=== PATIENT | female | born 1960 | race Asian ===

== ENCOUNTER → 2016-10-08 | Outpatient (CLI) | payer BC ==
[~2016-10-08] MED LIST: ALBUTEROL0.83 MG/ML IH; ASPIR-LOW81 MG PO; ASPIRIN E.C. 8181 MG PO; ATARAX 25MG25 MG/TAB PO; BENICAR; BRILINTA90 MG PO; CANA300T PO; CIPRO500 MG PO; CLARINEX 5MG5 MG PO; COMBIRESP IH; COUMADIN 5MG5 MG/TAB PO; CRESTOR20 MG PO; CYCLOBENZAPRINE5 MG PO; DIFLUCAN50 MG PO; DOXYCYCLINE 10100 MG PO; DULCOLAX TAB5 MG PO; EDARBI40 MG PO; ELAVIL50 MG PO; FLEXERIL5 MG PO; FLUCONAZOLE200 MG PO; GABAPENTIN; HUMALOG100 U/ML SC; LEVEMIR100 U/ML SC; LOPRESSOR 225 MG/TAB PO; LYRICA 75MG CAP75 MG PO; MAXALT10 MG PO; MULTIPLE VITAMI1 CAP PO; NITROSTAT0.4 MG/TAB SL; NORCO 325 MG-51 TAB PO; NOVOLOG100 U/ML IV; PERCOCET 325 MG1 TA2 PO; PLETAL 100MG T100 MG PO; RESTORIL 1515 MG/CAP PO; TOPROL; TOPROL XL 25MG25 MG PO; ULTRAM 50MG TAB50 MG PO; VYTORIN
== END ==
LOC: MHCPAIN 08:46
DX: G89.29 Other chronic pain (principal); M47.817 Spondylosis without myelopathy or radiculopathy, lumbosacral region; M54.16 Radiculopathy, lumbar region; E11.9 Type 2 diabetes mellitus without complications; F17.210 Nicotine dependence, cigarettes, uncomplicated
CPT/HCPCS: G0463

== ENCOUNTER → 2016-11-22 | Outpatient (CLI) | payer BC | LOC: MHCPAIN 10:48 | DX: G89.29 Other chronic pain (principal); M47.817 Spondylosis without myelopathy or radiculopathy, lumbosacral region; M54.16 Radiculopathy, lumbar region | CPT/HCPCS: G0463 ==

== ENCOUNTER → 2016-11-28 | Outpatient (CLI) | payer BC | LOC: MHCPAIN 07:39 | DX: Z53.8 Procedure and treatment not carried out for other reasons (principal) ==

== ENCOUNTER → 2016-12-12 | Outpatient (CLI) | payer BC, OTHER | LOC: MHCPAIN 09:30 | DX: M47.27 Other spondylosis with radiculopathy, lumbosacral region (principal) | CPT/HCPCS: J1100; Q9967 ==

== ENCOUNTER → 2017-01-13 | Outpatient (CLI) | payer BC | LOC: MHCPAIN 07:35 | DX: G89.29 Other chronic pain (principal); M47.817 Spondylosis without myelopathy or radiculopathy, lumbosacral region; M54.16 Radiculopathy, lumbar region; M53.3 Sacrococcygeal disorders, not elsewhere classified; F17.210 Nicotine dependence, cigarettes, uncomplicated | CPT/HCPCS: G0463 ==

== ENCOUNTER → 2017-01-30 | Outpatient (CLI) | payer BC | LOC: MHCPAIN 07:49 | DX: M47.817 Spondylosis without myelopathy or radiculopathy, lumbosacral region (principal) ==

== ENCOUNTER → 2017-02-05 | Outpatient (CLI) | payer BC | LOC: MHCPAIN 11:36 | DX: G89.29 Other chronic pain (principal); M47.817 Spondylosis without myelopathy or radiculopathy, lumbosacral region; M54.16 Radiculopathy, lumbar region; M53.3 Sacrococcygeal disorders, not elsewhere classified | CPT/HCPCS: G0463 ==

== ENCOUNTER → 2017-02-13 | Outpatient (CLI) | payer BC | LOC: MHCPAIN 08:25 | DX: M47.817 Spondylosis without myelopathy or radiculopathy, lumbosacral region (principal) ==

== ENCOUNTER → 2017-02-24 | Outpatient (CLI) | payer BC | LOC: MHCPAIN 10:59 | DX: G89.29 Other chronic pain (principal); M47.817 Spondylosis without myelopathy or radiculopathy, lumbosacral region; M54.16 Radiculopathy, lumbar region; F17.210 Nicotine dependence, cigarettes, uncomplicated | CPT/HCPCS: G0463 ==

== ENCOUNTER → 2017-03-06 | Outpatient (CLI) | payer BC | LOC: MHCPAIN 08:33 | DX: M47.817 Spondylosis without myelopathy or radiculopathy, lumbosacral region (principal) | CPT/HCPCS: J2250; J3010 ==

== ENCOUNTER → 2017-03-13 | Outpatient (CLI) | payer BC | LOC: MHCPAIN 08:26 | DX: M47.817 Spondylosis without myelopathy or radiculopathy, lumbosacral region (principal) | CPT/HCPCS: J2250; J3010 ==

== ENCOUNTER 2017-03-20 20:42 | Emergency (ER) | payer BC ==
[~2017-03-20] VITALS: Ht 167.6 cm; Wt 70.5 kg
[2017-03-20 20:46] VITALS: BP 152/79; TEMP 99
[2017-03-20] MEDS ORDERED: PERCOCET 325 MG1 TA2 PO (20:49)
[2017-03-20 23:23] VITALS: PULSE 92
== END 2017-03-20 23:23 | disposition home or self-care (01) ==
LOC: COL.ER 20:42
DX: G89.29 Other chronic pain (principal); M54.5 Low back pain; E11.9 Type 2 diabetes mellitus without complications; I10 Essential (primary) hypertension; I25.10 Atherosclerotic heart disease of native coronary artery without angina pectoris; Z95.820 Peripheral vascular angioplasty status with implants and grafts; F17.210 Nicotine dependence, cigarettes, uncomplicated
CPT/HCPCS: J1885; J3360

== ENCOUNTER → 2017-04-14 | Outpatient (CLI) | payer BC | LOC: MHCPAIN 12:06 | DX: G89.29 Other chronic pain (principal); F17.210 Nicotine dependence, cigarettes, uncomplicated; Z79.82 Long term (current) use of aspirin | CPT/HCPCS: G0463 ==

== ENCOUNTER → 2017-06-17 | Outpatient (CLI) | payer BC | LOC: MHCPAIN 08:08 | DX: G89.29 Other chronic pain (principal); M47.27 Other spondylosis with radiculopathy, lumbosacral region; M53.3 Sacrococcygeal disorders, not elsewhere classified; F17.210 Nicotine dependence, cigarettes, uncomplicated; Z79.82 Long term (current) use of aspirin | CPT/HCPCS: G0463 ==

== ENCOUNTER → 2017-07-29 | Outpatient (CLI) | payer BC ==
[2017-07-29 14:15] LABS: BASO # 0.1 (0.0-0.2); BASO % 1.2 % (0.0-2.0); EOS # 0.1 (0.0-0.7); EOS % 1.3 % (0-4.0); GRAN # 5.8 (1.4-6.5); GRAN % 60.2 % (42.2-75.2); HEMATOCRIT 44.8 % (37.0-47.0); HEMOGLOBIN 15.4 g/dl (12.5-16.0); LYMPH # 3.1 (1.2-3.4); LYMPH % 31.9 % (20.0-51.0); MEAN CELL VOLUME 87 fl (80.0-100.0); MEAN CORPUSCULAR HEMOGLOBIN 30 pg (27.0-31.0); MEAN CORPUSCULAR HGB CONC 34 g/dl (33.0-37.0); MEAN PLATELET VOLUME 9.9 fl (7.4-10.4); MONO # 0.5 (0.1-0.6); PLATELET COUNT 325 K/mm3 (130-400); RED BLOOD COUNT 5.18 M/mm3 (4.10-5.30); WHITE BLOOD COUNT 9.7 K/mm3 (4.8-10.8)
[2017-07-29 14:26] LABS: CALCIUM 10.5 mg/dL (8.4-10.2); CREATININE, serum 0.7 mg/dL (0.52-1.25); POTASSIUM 3.9 mmol/L (3.4-5.0)
[2017-07-30] LABS: ALBUMIN/CREATININE RATIO URINE 129.4 mg/g (0.0-29.0); URINE MICROALBUMIN 4.4 mg/dL (0.0-1.7)
== END ==
LOC: COL.LAB 13:37
PROVIDERS: Registered Nurse
DX: E11.8 Type 2 diabetes mellitus with unspecified complications (principal)

== ENCOUNTER → 2018-06-27 | Outpatient (CLI) | payer OTHER ==
[2018-06-27 06:52] LABS: HEMATOCRIT 42.2 % (37.0-47.0); HEMOGLOBIN 14.2 g/dl (12.5-16.0); MEAN CELL VOLUME 88 fl (80.0-100.0); MEAN CORPUSCULAR HEMOGLOBIN 30 pg (27.0-31.0); MEAN CORPUSCULAR HGB CONC 34 g/dl (33.0-37.0); PLATELET COUNT 354 K/mm3 (130-400); REDCELL DISTRIBUTION WIDTH-CV 12.8 % (11.5-14.5)
[2018-06-27 07:08] LABS: CREATININE, serum 0.82 mg/dL (0.52-1.25); POTASSIUM 3.9 mmol/L (3.4-5.0)
== END ==
LOC: COL.LAB 06:30
PROVIDERS: Internal Medicine Interventional Cardiology
DX: M79.604 Pain in right leg (principal); M79.605 Pain in left leg

== ENCOUNTER 2018-08-19 10:23 | Outpatient (RCR) | payer OTHER ==
[2018-08-26] MEDS ORDERED: LANTUS100 U/ML SQ (01:11)
[2018-08-26] MEDS ORDERED: TOPROL XL100 MG PO (01:15)
[2018-08-26] MEDS ORDERED: GLUCOPHAGE500 MG/TAB PO (01:18)
[2018-08-26] MEDS ORDERED: WELLBUTRIN XL150 MG PO (01:19)
[2018-08-26] MEDS ORDERED: PAMELOR 25MG25 MG PO (01:20)
[2018-08-26] MEDS ORDERED: NORVASC 10MG10 MG (01:20)
[2018-08-26] MEDS ORDERED: IMDUR 60MG60 MG/TAB PO (01:22)
[2018-08-26] MEDS ORDERED: LIPITOR 80MG80 MG PO (01:23)
[2018-08-26] MEDS ORDERED: PRIL40 PO (01:24)
== END 2018-11-12 | disposition still patient (30) ==
LOC: WSOH
DX: S46.812A Strain of other muscles, fascia and tendons at shoulder and upper arm level, left arm, initial encounter (principal); S50.02XA Contusion of left elbow, initial encounter; S60.413A Abrasion of left middle finger, initial encounter; W10.1XXA Fall (on)(from) sidewalk curb, initial encounter; Y93.01 Activity, walking, marching and hiking; Y92.128 Other place in nursing home as the place of occurrence of the external cause; Y99.0 Civilian activity done for income or pay; F17.210 Nicotine dependence, cigarettes, uncomplicated; Z79.82 Long term (current) use of aspirin; Z79.4 Long term (current) use of insulin; Z79.899 Other long term (current) drug therapy

== ENCOUNTER 2018-08-25 21:34 | Observation (INO) | payer OTHER ==
[~2018-08-25] VITALS: Ht 167.6 cm; Wt 67.4 kg
[2018-08-25 22:25] LABS: BASO # 0.1 (0.0-0.2); BASO % 1.2 % (0.0-2.0); EOS # 0.3 (0.0-0.7); EOS % 2.8 % (0-4.0); GRAN # 5.5 (1.4-6.5); GRAN % 54.4 % (42.2-75.2); HEMATOCRIT 43.2 % (37.0-47.0); HEMOGLOBIN 14.8 g/dl (12.5-16.0); LYMPH # 3.6 (1.2-3.4); LYMPH % 35.8 % (20.0-51.0); MEAN CELL VOLUME 86 fl (80.0-100.0); MEAN CORPUSCULAR HEMOGLOBIN 29 pg (27.0-31.0); MEAN CORPUSCULAR HGB CONC 34 g/dl (33.0-37.0); MONO # 0.6 (0.1-0.6); MONO % 5.4 % (1.7-9.3); PLATELET COUNT 337 K/mm3 (130-400); RED BLOOD COUNT 5.04 M/mm3 (4.10-5.30); REDCELL DISTRIBUTION WIDTH-CV 12.5 % (11.5-14.5)
[2018-08-25 22:36] LABS: ALBUMIN 4.1 gm/dL (3.5-5.0); BILIRUBIN,TOTAL 0.3 mg/dL (0.0-1.0); CALCIUM 9.7 mg/dL (8.4-10.2); CREATININE, serum 0.84 mg/dL (0.52-1.25); POTASSIUM 3.5 mmol/L (3.4-5.0); TOTAL PROTEIN 7.3 gm/dL (6.4-8.2)
[2018-08-25 22:47] LABS: TROPONIN-I 0.02 ng/mL (0.000-0.034)
[2018-08-26 00:52] VITALS: BP 118/96; PULSE 79; TEMP 98.3
[2018-08-26] MEDS ORDERED: LANTUS100 U/ML SQ (01:11)
[2018-08-26] MEDS ORDERED: TOPROL XL100 MG PO (01:15)
[2018-08-26] MEDS ORDERED: GLUCOPHAGE500 MG/TAB PO (01:18)
[2018-08-26] MEDS ORDERED: WELLBUTRIN XL150 MG PO (01:19)
[2018-08-26] MEDS ORDERED: PAMELOR 25MG25 MG PO (01:20)
[2018-08-26] MEDS ORDERED: NORVASC 10MG10 MG (01:20)
[2018-08-26] MEDS ORDERED: IMDUR 60MG60 MG/TAB PO (01:22)
[2018-08-26] MEDS ORDERED: LIPITOR 80MG80 MG PO (01:23)
[2018-08-26] MEDS ORDERED: PRIL40 PO (01:24)
[2018-08-26 04:11] VITALS: BP 114/55; PULSE 76; TEMP 97.6
[2018-08-26 09:45] VITALS: BP 107/51; PULSE 64; TEMP 98.4
[2018-08-26 13:00] VITALS: BP 109/53; PULSE 79; TEMP 98.7
[2018-08-26 16:02] VITALS: BP 122/61; PULSE 80; TEMP 98.4
== END 2018-08-26 19:00 | disposition home or self-care (01) ==
LOC: COL.ER 21:34 → MEDICAL 23:37
PROVIDERS: Emergency Medicine
DX: R07.89 Other chest pain (principal); I70.213 Atherosclerosis of native arteries of extremities with intermittent claudication, bilateral legs; I77.1 Stricture of artery; M79.604 Pain in right leg; M79.605 Pain in left leg; I10 Essential (primary) hypertension; F17.210 Nicotine dependence, cigarettes, uncomplicated; E11.9 Type 2 diabetes mellitus without complications; Z79.4 Long term (current) use of insulin; Z79.899 Other long term (current) drug therapy; Z79.82 Long term (current) use of aspirin; Z95.820 Peripheral vascular angioplasty status with implants and grafts; E78.6 Lipoprotein deficiency; I73.89 Other specified peripheral vascular diseases
CPT/HCPCS: A9585; G0378

== ENCOUNTER 2018-09-07 20:43 | Emergency (ER) | payer OTHER ==
[~2018-09-07] VITALS: Ht 167.6 cm; Wt 65.9 kg
[~2018-09-07 20:43] MED LIST changes: +GLUCOPHAGE500 MG/TAB PO; +IMDUR 60MG60 MG/TAB PO; +LANTUS100 U/ML SQ; +LIPITOR 80MG80 MG PO; +NORVASC 10MG10 MG; +PAMELOR 25MG25 MG PO; +PRIL40 PO; +TOPROL XL100 MG PO; +WELLBUTRIN XL150 MG PO
[2018-09-07 20:53] VITALS: TEMP 97.9
[2018-09-07 22:25] LABS: BASO # 0.1 (0.0-0.2); BASO % 0.8 % (0.0-2.0); EOS # 0.2 (0.0-0.7); GRAN # 4.9 (1.4-6.5); GRAN % 56.9 % (42.2-75.2); HEMATOCRIT 37.2 % (37.0-47.0); HEMOGLOBIN 12.5 g/dl (12.5-16.0); LYMPH # 3.1 (1.2-3.4); LYMPH % 35.4 % (20.0-51.0); MEAN CELL VOLUME 87 fl (80.0-100.0); MEAN CORPUSCULAR HEMOGLOBIN 29 pg (27.0-31.0); MEAN CORPUSCULAR HGB CONC 34 g/dl (33.0-37.0); MEAN PLATELET VOLUME 9.7 fl (7.4-10.4); MONO # 0.4 (0.1-0.6); MONO % 4.3 % (1.7-9.3); PLATELET COUNT 331 K/mm3 (130-400); REDCELL DISTRIBUTION WIDTH-CV 12.3 % (11.5-14.5)
[2018-09-07 22:31] LABS: INR 0.9 (0.8-3.0); PROTHROMBIN TIME 10.5 SECONDS (9.7-12.8)
[2018-09-08 01:50] VITALS: BP 130/84; PULSE 80
== END 2018-09-08 02:00 | disposition short-term general hospital (02) ==
LOC: COL.ER 20:43 → MEDICAL 22:06 → COL.ER 22:06
PROVIDERS: Emergency Medicine
DX: I97.610 Postprocedural hemorrhage of a circulatory system organ or structure following a cardiac catheterization (principal); I10 Essential (primary) hypertension; E11.9 Type 2 diabetes mellitus without complications; I25.10 Atherosclerotic heart disease of native coronary artery without angina pectoris; Z79.82 Long term (current) use of aspirin; Z79.4 Long term (current) use of insulin
CPT/HCPCS: J2405; J3010

== ENCOUNTER → 2018-10-06 | Outpatient (CLI) | payer OTHER | LOC: MHCPAIN 08:02 | DX: G89.29 Other chronic pain (principal); M47.817 Spondylosis without myelopathy or radiculopathy, lumbosacral region; M54.16 Radiculopathy, lumbar region; M53.3 Sacrococcygeal disorders, not elsewhere classified; M79.2 Neuralgia and neuritis, unspecified | CPT/HCPCS: G0463 ==

== ENCOUNTER → 2019-01-05 | Outpatient (CLI) | payer OTHER | LOC: MHCPAIN 07:59 | DX: G89.29 Other chronic pain (principal); M47.817 Spondylosis without myelopathy or radiculopathy, lumbosacral region; M54.16 Radiculopathy, lumbar region; M53.3 Sacrococcygeal disorders, not elsewhere classified; M79.2 Neuralgia and neuritis, unspecified | CPT/HCPCS: G0463 ==

== ENCOUNTER → 2019-03-30 | Outpatient (CLI) | payer OTHER | LOC: MHCPAIN 07:49 | DX: G89.29 Other chronic pain (principal); M47.817 Spondylosis without myelopathy or radiculopathy, lumbosacral region; M53.3 Sacrococcygeal disorders, not elsewhere classified; M79.2 Neuralgia and neuritis, unspecified | CPT/HCPCS: G0463 ==

== ENCOUNTER → 2019-06-23 | Outpatient (CLI) | payer OTHER | LOC: MHCPAIN 15:33 | DX: G89.29 Other chronic pain (principal); M47.817 Spondylosis without myelopathy or radiculopathy, lumbosacral region; M53.3 Sacrococcygeal disorders, not elsewhere classified | CPT/HCPCS: G0463 ==

== ENCOUNTER 2019-08-13 10:13 | Day surgery (SDC) | payer OTHER ==
[~2019-08-13] VITALS: Ht 167.6 cm; Wt 67.6 kg
[2019-08-13 10:51] VITALS: BP 106/75; PULSE 80; TEMP 98.5
[2019-08-13] MEDS ORDERED: PAMELOR 25MG25 MG PO (11:06)
[2019-08-13] MEDS ORDERED: NEURONTIN300 MG/CAP PO (11:06)
[2019-08-13] MEDS ORDERED: CRESTOR20 MG PO (11:08)
[2019-08-13] MEDS ORDERED: MULTIPLE VITAMI1 CAP PO (11:12)
[2019-08-13] MEDS ORDERED: PROTONIX 40MG T40 MG PO (11:14)
[2019-08-13] MEDS ORDERED: PLETAL50 MG PO (11:15)
[2019-08-13] MEDS ORDERED: D3-5050000 IU PO (11:15)
[2019-08-13] MEDS ORDERED: WELLBUTRIN SR150 M1 PO (11:16)
[2019-08-13] MEDS ORDERED: GLUCOPHAGE500 MG/TAB PO (11:17)
[2019-08-13] MEDS ORDERED: CELEXA40 MG PO (11:17)
[2019-08-13] MEDS ORDERED: FLEXERIL 1010 MG/TAB PO (11:18)
[2019-08-13] MEDS ORDERED: NORCO 325 MG-7.1 TAB PO (11:18)
--- NOTE | 2019-08-13 11:26 | NUR ---
TO BAY 5 AT 1020- CALL LIGHT IN REACH IN WAITING RM AND REQUESTED TO STAY IN WAITING RM TILL AFTER PROCEDURE.
[2019-08-13 12:35] VITALS: BP 103/62; PULSE 77; TEMP 98.2
--- NOTE | 2019-08-13 12:35 | NUR ---
Pt to GI bay 5 via cart from [employer] [facility]. Pt drowsy, but awake. Pt ambulates to recliner with stand by assistance. Warm blanket provided. Water given per pt request. in room. Call light within reach.
[2019-08-13 12:50] VITALS: BP 103/82; PULSE 75
--- NOTE | 2019-08-13 12:50 | NUR ---
Pt continues to rest. Tolerating po water without difficulties. Call light within reach.
[2019-08-13 13:05] VITALS: BP 102/69; PULSE 69
--- NOTE | 2019-08-13 13:05 | NUR ---
Pt visting with . Denies needs. Call light within reach.
[2019-08-13 13:20] VITALS: BP 94/64; PULSE 69
--- NOTE | 2019-08-13 13:20 | NUR ---
Pt continues to rest. Denies needs. Call light within reach.
--- NOTE | 2019-08-13 13:35 | NUR ---
Discharge instructions reviewed. Pt voices understanding. IV site discontinued with all parts intact. Pt up to dress. Call light within reach.
--- NOTE | 2019-08-13 13:47 | NUR ---
Pt escorted to private car via wheel chair. Pt accompanied home by her .
== END 2019-08-13 13:47 | disposition home or self-care (01) ==
LOC: SDCO 10:13
DX: Z12.11 Encounter for screening for malignant neoplasm of colon (principal); D12.2 Benign neoplasm of ascending colon; I10 Essential (primary) hypertension; J44.9 Chronic obstructive pulmonary disease, unspecified; K44.9 Diaphragmatic hernia without obstruction or gangrene; I47.1 Supraventricular tachycardia; E11.9 Type 2 diabetes mellitus without complications; Z88.5 Allergy status to narcotic agent; Z88.2 Allergy status to sulfonamides; Z88.8 Allergy status to other drugs, medicaments and biological substances; Z90.710 Acquired absence of both cervix and uterus; Z79.82 Long term (current) use of aspirin; Z95.5 Presence of coronary angioplasty implant and graft
CPT/HCPCS: J2704; J7030

== ENCOUNTER 2019-08-20 11:04 | Day surgery (SDC) | payer OTHER ==
[~2019-08-20] VITALS: Ht 167.7 cm; Wt 66.4 kg
[2019-08-20] VITALS (9 sets, daily range): BP systolic 121–146; BP diastolic 72–88; PULSE 82–98; TEMP 98
[~2019-08-20 11:04] MED LIST changes: +CELEXA40 MG PO; +D3-5050000 IU PO; +FLEXERIL 1010 MG/TAB PO; +NEURONTIN300 MG/CAP PO; +NORCO 325 MG-7.1 TAB PO; -NORVASC 10MG10 MG; +NORVASC 10MG10 MG PO; +PLETAL50 MG PO; +PROTONIX 40MG T40 MG PO; +WELLBUTRIN SR150 M1 PO
[2019-08-20 12:01] LABS: HEMATOCRIT 44.2 % (37.0-47.0); HEMOGLOBIN 14.8 g/dl (12.5-16.0); MEAN CELL VOLUME 85 fl (80.0-100.0); MEAN CORPUSCULAR HEMOGLOBIN 29 pg (27.0-31.0); MEAN CORPUSCULAR HGB CONC 34 g/dl (33.0-37.0); MEAN PLATELET VOLUME 9.6 fl (7.4-10.4); PLATELET COUNT 309 K/mm3 (130-400); RED BLOOD COUNT 5.18 M/mm3 (4.10-5.30); REDCELL DISTRIBUTION WIDTH-CV 12.5 % (11.5-14.5)
[2019-08-20 12:15] LABS: CALCIUM 9.4 mg/dL (8.4-10.2); CREATININE, serum 0.74 (0.52-1.25); POTASSIUM 3.8 mmol/L (3.4-5.0)
[2019-08-20 12:20] LABS: INR 0.9 (0.8-3.0); PROTHROMBIN TIME 10.2 SECONDS (9.7-12.8)
[2019-08-20 12:22] LABS: PARTIAL THROMBOPLASTIN TIME 29.3 SECONDS (26.0-37.0)
--- NOTE | 2019-08-20 13:51 | NUR ---
SEE MERGE DOCUMENTATION FOR MEDICATION ADMINISTRATION TIMES AND INTRA/POST PROCEDURE SEDATION ASSESSMENTS. RIGHT RADIAL APPROACH PLANNED; BARBEAU TEST POSITIVE TO RIGHT HAND.
[2019-08-20] MEDS ORDERED: LASIX 20MG TABL20 MG PO (14:32)
--- NOTE | 2019-08-20 14:44 | NUR ---
Back from [employer]. Alert and oriented. Right wrist Tband with 12 cc air CD&I, good pulses and cap refill < 3 secs. VSS.
--- NOTE | 2019-08-20 17:08 | NUR ---
IV discontinued intact. Tband deflated of 12 cc air and pressure dressing applied.
--- NOTE | 2019-08-20 17:18 | NUR ---
Discharge instructions given. Transferred to private car by sofia
== END 2019-08-20 17:18 | disposition home or self-care (01) ==
LOC: COL.CAR 11:04
PROVIDERS: Internal Medicine Cardiovascular Disease
DX: I25.10 Atherosclerotic heart disease of native coronary artery without angina pectoris (principal); I10 Essential (primary) hypertension; M79.604 Pain in right leg; M79.605 Pain in left leg; F17.210 Nicotine dependence, cigarettes, uncomplicated; E11.9 Type 2 diabetes mellitus without complications; Z79.4 Long term (current) use of insulin; Z79.899 Other long term (current) drug therapy; Z88.6 Allergy status to analgesic agent; Z88.2 Allergy status to sulfonamides; Z95.5 Presence of coronary angioplasty implant and graft
CPT/HCPCS: J1644; J2250; J3010; Q9967

== ENCOUNTER 2019-10-29 12:05 | Emergency (ER) | payer BC ==
[~2019-10-29] VITALS: Ht 167.6 cm; Wt 65.9 kg
[~2019-10-29 12:05] MED LIST changes: +LASIX 20MG TABL20 MG PO
[2019-10-29 12:13] VITALS: BP 197/96; TEMP 98.6
[2019-10-29 12:55] LABS: COLLECTION METHOD CLEAN CATCH
[2019-10-29 13:01] LABS: BASO # 0.1 (0.0-0.2); BASO % 0.9 % (0.0-2.0); EOS # 0.2 (0.0-0.7); EOS % 1.8 % (0-4.0); GRAN # 8.3 (1.4-6.5); GRAN % 72.4 % (42.2-75.2); HEMATOCRIT 44.6 % (37.0-47.0); HEMOGLOBIN 15.2 g/dl (12.5-16.0); LYMPH # 2.1 (1.2-3.4); LYMPH % 18.8 % (20.0-51.0); MEAN CELL VOLUME 85 fl (80.0-100.0); MEAN CORPUSCULAR HEMOGLOBIN 29 pg (27.0-31.0); MEAN CORPUSCULAR HGB CONC 34 g/dl (33.0-37.0); MEAN PLATELET VOLUME 9.9 fl (7.4-10.4); MONO # 0.7 (0.1-0.6); MONO % 5.7 % (1.7-9.3); PLATELET COUNT 328 K/mm3 (130-400); RED BLOOD COUNT 5.26 M/mm3 (4.10-5.30); REDCELL DISTRIBUTION WIDTH-CV 12.5 % (11.5-14.5)
[2019-10-29 13:05] LABS: PH 6 (5-8); SQUAMOUS EPITHELIAL 0-2 /hpf; URINE APPEARANCE Hazy; URINE BACTERIA None Seen /hpf; URINE BILIRUBIN Negative (NEGATIVE); URINE BLOOD Negative (NEGATIVE); URINE COLOR Straw; URINE GLUCOSE 3+ (NEGATIVE); URINE KETONE Negative (NEGATIVE); URINE LEUKOCYTE ESTERASE 1+ (NEGATIVE); URINE NITRATE Negative (NEGATIVE); URINE PROTEIN(semi-quant) 2+ (NEGATIVE); URINE UROBILINOGEN Negative (NEGATIVE)
[2019-10-29 13:13] LABS: ALBUMIN 4.5 gm/dL (3.5-5.0); BILIRUBIN,TOTAL 0.4 mg/dL (0.0-1.0); C-REACTIVE PROTEIN 1.9 mg/dL (0.0-0.9); CALCIUM 9.9 mg/dL (8.4-10.2); CREATININE, serum 0.6 (0.52-1.25); POTASSIUM 4.1 mmol/L (3.4-5.0); TOTAL PROTEIN 7.9 gm/dL (6.4-8.2)
[2019-10-29] MEDS ORDERED: OMNICEF 300MG300 MG PO (14:37)
[2019-10-29 15:41] VITALS: PULSE 94
== END 2019-10-29 15:41 | disposition home or self-care (01) ==
LOC: COL.ER 12:05
PROVIDERS: Family Medicine
DX: N39.0 Urinary tract infection, site not specified (principal); I73.9 Peripheral vascular disease, unspecified; E11.9 Type 2 diabetes mellitus without complications; I25.10 Atherosclerotic heart disease of native coronary artery without angina pectoris; F17.210 Nicotine dependence, cigarettes, uncomplicated; Z90.710 Acquired absence of both cervix and uterus; Z79.82 Long term (current) use of aspirin; Z79.4 Long term (current) use of insulin
CPT/HCPCS: J0696; J1815; J1885; J2405; J3010; J7030; Q9967

== ENCOUNTER 2019-11-28 23:14 | Emergency (ER) | payer BC ==
[~2019-11-28] VITALS: Ht 167.6 cm; Wt 65.9 kg
[~2019-11-28 23:14] MED LIST changes: +OMNICEF 300MG300 MG PO
[2019-11-29 00:48] LABS: COLLECTION METHOD CLEAN CATCH
[2019-11-29 00:51] LABS: BASO # 0.1 (0.0-0.2); BASO % 0.7 % (0.0-2.0); EOS # 0.2 (0.0-0.7); EOS % 1.5 % (0-4.0); GRAN # 6.6 (1.4-6.5); GRAN % 63.8 % (42.2-75.2); HEMATOCRIT 38.6 % (37.0-47.0); HEMOGLOBIN 12.8 g/dl (12.5-16.0); LYMPH % 28.7 % (20.0-51.0); MEAN CELL VOLUME 87 fl (80.0-100.0); MEAN CORPUSCULAR HEMOGLOBIN 29 pg (27.0-31.0); MEAN CORPUSCULAR HGB CONC 33 g/dl (33.0-37.0); MEAN PLATELET VOLUME 10.1 fl (7.4-10.4); MONO # 0.5 (0.1-0.6); MONO % 4.7 % (1.7-9.3); PLATELET COUNT 302 K/mm3 (130-400); RED BLOOD COUNT 4.44 M/mm3 (4.10-5.30); REDCELL DISTRIBUTION WIDTH-CV 12.9 % (11.5-14.5)
[2019-11-29 00:54] LABS: MUCOUS Present /lpf; PH 5 (5-8); SQUAMOUS EPITHELIAL 0-2 /hpf; URINE APPEARANCE Clear; URINE BACTERIA None Seen /hpf; URINE BILIRUBIN Negative (NEGATIVE); URINE BLOOD Negative (NEGATIVE); URINE COLOR Yellow; URINE GLUCOSE 1+ (NEGATIVE); URINE KETONE Trace (NEGATIVE); URINE LEUKOCYTE ESTERASE Negative (NEGATIVE); URINE NITRATE Negative (NEGATIVE); URINE PROTEIN(semi-quant) 2+ (NEGATIVE); URINE RBC 0-2 /hpf; URINE UROBILINOGEN Negative (NEGATIVE)
[2019-11-29 01:07] LABS: ALANINE AMINOTRANSFERASE 14 U/L (4-34); ALKALINE PHOSPHATASE 83 U/L (50-136); ANION GAP 10 mmol/L (7-16); AST,SGOT 19 U/L (15-37); BILIRUBIN,TOTAL 0.2 mg/dL (0.0-1.0); BLOOD UREA NITROGEN 34 mg/dL (7-17); CALCIUM 9.4 mg/dL (8.4-10.2); CARBON DIOXIDE 26 mmol/L (22-30); CHLORIDE 103 mmol/L (98-107); CREATININE, serum 0.98 (0.52-1.25); GLUCOSE 241 mg/dL (74-106); POTASSIUM 3.8 mmol/L (3.4-5.0); SODIUM 139 mmol/L (137-145); TOTAL PROTEIN 6.8 gm/dL (6.4-8.2)
[2019-11-29 01:17] LABS: TROPONIN-I < 0.012 ng/mL (0.000-0.035)
[2019-11-29] MEDS ORDERED: ANTIVERT 25MG25 MG PO (03:53)
[2019-11-29 04:45] VITALS: BP 107/61; PULSE 72; TEMP 97.6
== END 2019-11-29 04:48 | disposition home or self-care (01) ==
LOC: COL.ER 23:14
PROVIDERS: Emergency Medicine
DX: I95.9 Hypotension, unspecified (principal); H81.399 Other peripheral vertigo, unspecified ear; I25.10 Atherosclerotic heart disease of native coronary artery without angina pectoris; E11.9 Type 2 diabetes mellitus without complications; E78.00 Pure hypercholesterolemia, unspecified; F17.210 Nicotine dependence, cigarettes, uncomplicated; Z79.4 Long term (current) use of insulin; Z79.82 Long term (current) use of aspirin

== ENCOUNTER → 2020-03-22 | Outpatient (CLI) | payer BC ==
[~2020-03-22] MED LIST changes: +ANTIVERT 25MG25 MG PO
== END ==
LOC: MHCPAIN 08:08
DX: M47.817 Spondylosis without myelopathy or radiculopathy, lumbosacral region (principal); M54.5 Low back pain; M53.3 Sacrococcygeal disorders, not elsewhere classified; M54.16 Radiculopathy, lumbar region
CPT/HCPCS: G0463

== ENCOUNTER 2020-04-04 18:38 | Emergency (ER) | payer BC ==
[~2020-04-04] VITALS: Ht 167.6 cm; Wt 65.9 kg
[2020-04-04 18:44] VITALS: TEMP 97.5
[2020-04-04 19:11] LABS: BASO # 0.1 (0.0-0.2); BASO % 0.7 % (0.0-2.0); EOS # 0.3 (0.0-0.7); EOS % 1.6 % (0-4.0); GRAN # 12.6 (1.4-6.5); GRAN % 76.2 % (42.2-75.2); HEMATOCRIT 40.2 % (37.0-47.0); HEMOGLOBIN 13.6 g/dl (12.5-16.0); LYMPH # 2.8 (1.2-3.4); LYMPH % 16.8 % (20.0-51.0); MEAN CELL VOLUME 86 fl (80.0-100.0); MEAN CORPUSCULAR HEMOGLOBIN 29 pg (27.0-31.0); MEAN CORPUSCULAR HGB CONC 34 g/dl (33.0-37.0); MEAN PLATELET VOLUME 9.5 fl (7.4-10.4); MONO # 0.7 (0.1-0.6); PLATELET COUNT 365 K/mm3 (130-400); RED BLOOD COUNT 4.66 M/mm3 (4.10-5.30); REDCELL DISTRIBUTION WIDTH-CV 12.4 % (11.5-14.5)
[2020-04-04 19:26] LABS: ALANINE AMINOTRANSFERASE 18 U/L (4-34); ALBUMIN 4.4 gm/dL (3.5-5.0); ALKALINE PHOSPHATASE 104 U/L (50-136); ANION GAP 9 mmol/L (7-16); AST,SGOT 30 U/L (15-37); BILIRUBIN,TOTAL 0.6 mg/dL (0.0-1.0); BLOOD UREA NITROGEN 28 mg/dL (7-17); CALCIUM 9.8 mg/dL (8.4-10.2); CARBON DIOXIDE 27 mmol/L (22-30); CHLORIDE 102 mmol/L (98-107); CREATININE, serum 1.19 (0.52-1.25); GLUCOSE 107 mg/dL (74-106); POTASSIUM 3.9 mmol/L (3.4-5.0); SODIUM 138 mmol/L (137-145); TOTAL PROTEIN 7.9 gm/dL (6.4-8.2)
[2020-04-04 19:46] LABS: TROPONIN-I < 0.012 ng/mL (0.000-0.035)
[2020-04-04 20:01] LABS: COLLECTION METHOD CLEAN CATCH
[2020-04-04] MEDS ORDERED: CRESTOR20 MG PO (20:04)
[2020-04-04] MEDS ORDERED: BRILINTA90 MG PO (20:09)
[2020-04-04 20:15] LABS: MUCOUS Present /lpf; PH 5 (5-8); URINE APPEARANCE Hazy; URINE BACTERIA Many /hpf; URINE BILIRUBIN Negative (NEGATIVE); URINE BLOOD 1+ (NEGATIVE); URINE COLOR Yellow; URINE GLUCOSE 1+ (NEGATIVE); URINE KETONE Negative (NEGATIVE); URINE LEUKOCYTE ESTERASE Negative (NEGATIVE); URINE NITRATE Positive (NEGATIVE); URINE PROTEIN(semi-quant) 1+ (NEGATIVE); URINE RBC 0-2 /hpf; URINE UROBILINOGEN Negative (NEGATIVE)
[2020-04-04 21:15] VITALS: BP 139/77; PULSE 79
== END 2020-04-04 21:35 | disposition home or self-care (01) ==
LOC: COL.ER 18:38
PROVIDERS: Emergency Medicine
DX: E86.0 Dehydration (principal); R42 Dizziness and giddiness; R51 Headache; J44.9 Chronic obstructive pulmonary disease, unspecified; I10 Essential (primary) hypertension; E11.9 Type 2 diabetes mellitus without complications; I25.10 Atherosclerotic heart disease of native coronary artery without angina pectoris; F32.9 Major depressive disorder, single episode, unspecified; F17.210 Nicotine dependence, cigarettes, uncomplicated; Z79.4 Long term (current) use of insulin; Z79.82 Long term (current) use of aspirin
CPT/HCPCS: J3010; J7030

== ENCOUNTER 2020-06-16 17:18 | Emergency (ER) | payer BC ==
[~2020-06-16] VITALS: Ht 167.6 cm; Wt 65.0 kg
[2020-06-16 17:28] VITALS: TEMP 97.8
[2020-06-16 17:55] LABS: BASO # 0.1 (0.0-0.2); BASO % 0.7 % (0.0-2.0); EOS # 0.1 (0.0-0.7); EOS % 0.5 % (0-4.0); GRAN # 10.5 (1.4-6.5); GRAN % 78.3 % (42.2-75.2); HEMATOCRIT 42.3 % (37.0-47.0); HEMOGLOBIN 14.7 g/dl (12.5-16.0); LYMPH # 2.1 (1.2-3.4); LYMPH % 15.9 % (20.0-51.0); MEAN CELL VOLUME 86 fl (80.0-100.0); MEAN CORPUSCULAR HEMOGLOBIN 30 pg (27.0-31.0); MEAN CORPUSCULAR HGB CONC 35 g/dl (33.0-37.0); MEAN PLATELET VOLUME 10.5 fl (7.4-10.4); MONO # 0.6 (0.1-0.6); MONO % 4.1 % (1.7-9.3); PLATELET COUNT 334 K/mm3 (130-400); RED BLOOD COUNT 4.91 M/mm3 (4.10-5.30); REDCELL DISTRIBUTION WIDTH-CV 12.4 % (11.5-14.5)
[2020-06-16 18:10] LABS: ALBUMIN 4.5 gm/dL (3.5-5.0); BILIRUBIN,TOTAL 0.6 mg/dL (0.0-1.0); C-REACTIVE PROTEIN 0.6 mg/dL (0.0-0.9); CREATININE, serum 0.96 (0.52-1.25); POTASSIUM 3.7 mmol/L (3.4-5.0); TOTAL PROTEIN 7.8 gm/dL (6.4-8.2)
[2020-06-16 18:19] LABS: TROPONIN-I 0.019 ng/mL (0.000-0.035)
[2020-06-16 20:55] VITALS: BP 120/80; PULSE 80
== END 2020-06-16 20:55 | disposition home or self-care (01) ==
LOC: COL.ER 17:18
PROVIDERS: Emergency Medicine
DX: I95.9 Hypotension, unspecified (principal); R51.9 Headache, unspecified; E11.9 Type 2 diabetes mellitus without complications; I25.10 Atherosclerotic heart disease of native coronary artery without angina pectoris; E78.5 Hyperlipidemia, unspecified; I73.9 Peripheral vascular disease, unspecified; F17.210 Nicotine dependence, cigarettes, uncomplicated; Z90.710 Acquired absence of both cervix and uterus; Z95.5 Presence of coronary angioplasty implant and graft; Z88.2 Allergy status to sulfonamides; Z88.6 Allergy status to analgesic agent; Z79.4 Long term (current) use of insulin; Z79.82 Long term (current) use of aspirin; Z79.02 Long term (current) use of antithrombotics/antiplatelets
CPT/HCPCS: J2405; J3010; J7030

== ENCOUNTER → 2020-06-20 | Outpatient (CLI) | payer BC | LOC: MHCPAIN 10:02 | DX: M47.817 Spondylosis without myelopathy or radiculopathy, lumbosacral region (principal); M54.5 Low back pain; M53.3 Sacrococcygeal disorders, not elsewhere classified; G89.29 Other chronic pain; M54.16 Radiculopathy, lumbar region | CPT/HCPCS: G0463 ==

== ENCOUNTER → 2020-09-19 | Outpatient (CLI) | payer OTHER ==
[~2020-09-19] MED LIST changes: +BONINE25 MG PO
== END ==
LOC: MHCPAIN 10:06
DX: M47.816 Spondylosis without myelopathy or radiculopathy, lumbar region (principal); M54.5 Low back pain; M79.2 Neuralgia and neuritis, unspecified; G89.29 Other chronic pain
CPT/HCPCS: G0463

== ENCOUNTER → 2020-10-18 | Outpatient (CLI) | payer OTHER ==
[2020-10-18 11:19] LABS: CALCIUM 9.9 mg/dL (8.4-10.2); CREATININE, serum 0.63 (0.52-1.25); POTASSIUM 4.7 mmol/L (3.4-5.0)
[2020-10-18 11:35] LABS: TROPONIN-I 0.039 ng/mL (0.000-0.035)
== END ==
LOC: ZCOL.LAB 11:00
PROVIDERS: Internal Medicine Interventional Cardiology
DX: R07.89 Other chest pain (principal)

== ENCOUNTER 2020-11-17 12:12 | Day surgery (SDC) | payer OTHER ==
[2020-11-17] VITALS (190 sets, daily range): BP systolic 134–157; BP diastolic 70–99; PULSE 70–79; TEMP 97.3–97.9; O2SAT 88–100
[~2020-11-17] VITALS: Ht 167.6 cm; Wt 64.5 kg
[2020-11-17 13:16] LABS: HEMATOCRIT 37.5 % (37.0-47.0); HEMOGLOBIN 12.5 g/dl (12.5-16.0); MEAN CELL VOLUME 88 fl (80.0-100.0); MEAN CORPUSCULAR HEMOGLOBIN 29 pg (27.0-31.0); MEAN CORPUSCULAR HGB CONC 33 g/dl (33.0-37.0); MEAN PLATELET VOLUME 9.8 fl (7.4-10.4); PLATELET COUNT 304 K/mm3 (130-400); RED BLOOD COUNT 4.28 M/mm3 (4.10-5.30); REDCELL DISTRIBUTION WIDTH-CV 12.7 % (11.5-14.5)
[2020-11-17 13:25] LABS: CREATININE, serum 0.69 (0.52-1.25); POTASSIUM 4.4 mmol/L (3.4-5.0)
[2020-11-17 13:28] LABS: INR 0.9 (0.8-3.0); PROTHROMBIN TIME 10.4 SECONDS (9.7-12.8)
[2020-11-17 13:30] LABS: PARTIAL THROMBOPLASTIN TIME 28.2 SECONDS (26.0-37.0)
[2020-11-17] MEDS ORDERED: COZAAR 25MG25 MG/TAB PO (13:56)
--- NOTE | 2020-11-17 16:36 | NUR ---
SEE MERGE DOCUMENTATION FOR MEDICATION ADMINISTRATION TIMES AND INTRA/POST PROCEDURE SEDATION ASSESSMENTS. RIGHT HAND BARBEAU TEST POSITIVE.
--- NOTE | 2020-11-17 18:00 | NUR ---
PATIENT ARRIVES TO ICU ROOM 1. GROIN SITE AND RADIAL SITE ASSESSED. PATIENT ALERT AND ORIENTED. SHE HAS NO COMPLAINTS. VS WNL. WILL CONTINUE TO MONITOR.
--- NOTE | 2020-11-17 19:42 | NUR ---
REPORT GIVEN TO LATIA SOMMERS
--- NOTE | 2020-11-17 20:00 | NUR ---
Assessment complete. Pt is AXO X3, states she has pain to her L femoral cath site on palpation but site is soft. Breathing is even and unlabored on room air. R radial cath site dressing removed and site is soft. Pt is resting quielty in the bed watching TV at this time and she denies further needs. Call light within reach.
[2020-11-18] VITALS (205 sets, daily range): BP systolic 137–162; BP diastolic 69–86; PULSE 71–103; TEMP 97.8–98; O2SAT 94–100
[2020-11-18 05:41] LABS: BASO # 0.1 (0.0-0.2); BASO % 1.1 % (0.0-2.0); EOS # 0.3 (0.0-0.7); EOS % 3.9 % (0-4.0); GRAN # 4.6 (1.4-6.5); GRAN % 55.7 % (42.2-75.2); HEMATOCRIT 37.4 % (37.0-47.0); HEMOGLOBIN 12.4 g/dl (12.5-16.0); LYMPH # 2.7 (1.2-3.4); LYMPH % 33.5 % (20.0-51.0); MEAN CELL VOLUME 88 fl (80.0-100.0); MEAN CORPUSCULAR HEMOGLOBIN 29 pg (27.0-31.0); MEAN CORPUSCULAR HGB CONC 33 g/dl (33.0-37.0); MONO # 0.4 (0.1-0.6); MONO % 5.4 % (1.7-9.3); PLATELET COUNT 286 K/mm3 (130-400); RED BLOOD COUNT 4.23 M/mm3 (4.10-5.30); REDCELL DISTRIBUTION WIDTH-CV 12.6 % (11.5-14.5)
[2020-11-18 05:53] LABS: CALCIUM 8.7 mg/dL (8.4-10.2); CREATININE, serum 0.65 (0.52-1.25); POTASSIUM 3.5 mmol/L (3.4-5.0)
--- NOTE | 2020-11-18 07:10 | NUR ---
PATIENT RESTING IN BED AT THIS TIME. DOES NOT C/O ANY PAIN OR DISCOMFORT AT THIS TIME. PATIENT DENIES ANY NEEDS AT THIS TIME. WILL CONTINUE TO MONITOR. CALL LIGHT WITHIN REACH.
--- NOTE | 2020-11-18 12:21 | NUR ---
PATIENT BS REPORTED 41. 2 ORANGE JUICES AND GRAHM CRACKERS WERE GIVEN TO ELEVATE BS. PATIENT REPORTS NO N/V, LIGHTHEADNESS, AND IS NOT DIAPHORETIC. WILL CONTINUE TO MONITOR. CALL LIGHT WITHIN REACH.
--- NOTE | 2020-11-18 12:50 | NUR ---
PATIENT'S BS IS 78. PATIENT IS FIT FOR DISCHARGE. PATIENT DENIES ANY FURTHER QUESTIONS OR CONCERNS. ESCORTED OUT OF THE BUILDING BY VIA [employer] STAFF.
--- NOTE | 2020-11-18 14:07 | NUR ---
Met with patient for DC planning. Patient reports that she resides in [place] with her spouse Ora [phone]. Patient reports that she is IDL and uses only a life vest? Patient reports that she uses [facility]. Patients PCP is Dr. Shamika Graves.Patient denies the use of any other DME, declines, home health, and reports that she has transportation and not other medical or financial concern. SW educated patient on services. Nothing further.
== END 2020-11-18 12:51 | disposition home or self-care (01) ==
LOC: COL.CAR 12:12 → ICU 18:16 → MEDICAL 11-18 05:17 → COL.CAR 11-18 12:51
PROVIDERS: Internal Medicine Interventional Cardiology
DX: I25.10 Atherosclerotic heart disease of native coronary artery without angina pectoris (principal); I77.1 Stricture of artery; I11.0 Hypertensive heart disease with heart failure; I73.9 Peripheral vascular disease, unspecified; I50.22 Chronic systolic (congestive) heart failure; E11.9 Type 2 diabetes mellitus without complications; E78.5 Hyperlipidemia, unspecified; F17.210 Nicotine dependence, cigarettes, uncomplicated; Z79.899 Other long term (current) drug therapy; Z79.4 Long term (current) use of insulin; Z79.82 Long term (current) use of aspirin; Z88.2 Allergy status to sulfonamides; Z88.8 Allergy status to other drugs, medicaments and biological substances; Z88.5 Allergy status to narcotic agent; Z83.3 Family history of diabetes mellitus; Z80.9 Family history of malignant neoplasm, unspecified
CPT/HCPCS: OP; C1725; C1760; C1769; C1874; C1887; C1894; C9600; J0583; J1644; J1815; J2250; J3010; Q9967

== ENCOUNTER 2021-03-16 04:44 | Observation (INO) | payer OTHER ==
[~2021-03-16] VITALS: Ht 167.6 cm; Wt 63.8 kg
[~2021-03-16 04:44] MED LIST changes: +COZAAR 25MG25 MG/TAB PO
[2021-03-16 06:13] VITALS: BP 109/56; PULSE 91; TEMP 98.3
--- NOTE | 2021-03-16 06:20 | NUR ---
Arrived via ambulance, awake, alert, oriented x 4, ambulates w/o difficulty, answers all questions readily, denies needs at this time, assessment completed, updated on plan of care and oriented to room
[2021-03-16] MEDS ORDERED: PLAVIX 75MG TAB75 MG PO (06:26)
[2021-03-16] MEDS ORDERED: CELEXA40 MG PO (06:50)
[2021-03-16] MEDS ORDERED: TOPROL XL100 MG PO (06:50)
[2021-03-16] MEDS ORDERED: PLETAL 100MG T100 MG PO (06:51)
[2021-03-16 07:42] LABS: INR 0.9 (0.8-3.0); PROTHROMBIN TIME 10.1 SECONDS (9.7-12.8)
[2021-03-16 07:44] VITALS: BP 103/64; PULSE 90; TEMP 98.3
[2021-03-16 07:44] LABS: PARTIAL THROMBOPLASTIN TIME 25.1 SECONDS (26.0-37.0)
[2021-03-16 07:58] LABS: TROPONIN-I 0.06 ng/mL (0.000-0.035)
--- NOTE | 2021-03-16 08:05 | NUR ---
Notified hospitalist of increased troponin.
[2021-03-16 08:19] LABS: CHOLESTEROL RISK RATIO 6.1; MAGNESIUM 1.9 mg/dL (1.6-2.3)
[2021-03-16 10:58] VITALS: BP 117/58; PULSE 76; TEMP 98.5
--- NOTE | 2021-03-16 11:31 | NUR ---
Sw met with the pt and (present). The stated his preference to return her home once medically stable. The Sw spoke with the to answer the intake questions. The pt lives at home with her , Tomas (ph# [phone]). The pt needs help with bathing, getting dressed. The pt uses a walker at home and wheelchair in in public. The pt pcp is [facility] and gets her medications from [facility]. The pt has a DPAO-HC. No other needs stated at this time. Sw to await further recommendations and follow up as needed. Sw followed in rounds. D/c: Home with .
--- NOTE | 2021-03-16 11:43 | NUR ---
Sw met with the pt who stated her preference to return home once medially stable. The pt lives at home with her , Harpreet (ph# [phone]). The pt is independent on all ADLS and uses no DME. The pt PCP is Perla Graves APN and gets her medications from [facility] in [place], [place]. The pt does not have DPAO-HC and is not interested in one at this time. No other needs stated at this time. Sw to follow up if needed. D/c: Home with .
--- NOTE | 2021-03-16 12:26 | NUR ---
Contacted Gail CELIS, States she continues to have back pain states tylenol did not help much with pain when given this AM.
--- NOTE | 2021-03-16 13:47 | NUR ---
Notified cardiology about troponin
[2021-03-16 16:13] VITALS: BP 107/58; PULSE 75; TEMP 97.8
--- NOTE | 2021-03-16 18:23 | NUR ---
Patient doing well throughout the day, minimal needs. Denies pain at this time. Patient denies further needs at this time. Will report off to furniture arranger.
[2021-03-16 19:17] VITALS: BP 112/49; PULSE 80; TEMP 97.8
--- NOTE | 2021-03-16 19:21 | NUR ---
Resting quietly, telemetry in use, no s/s of hypo/hyper glycemia, denies c/o pain, updated on plan of care- verbalized understanding.
[2021-03-16 23:41] VITALS: BP 139/61; PULSE 78; TEMP 98.4
[2021-03-17 04:06] VITALS: BP 132/61; PULSE 75; TEMP 97.7
[2021-03-17 07:29] VITALS: BP 125/71; PULSE 74; TEMP 97.9
--- NOTE | 2021-03-17 08:56 | NUR ---
Patient sitting up in bed. Alert and oriented x 3 .Assessment complete. Denies pain at this time. Denies needs at this time. INT to left forarm without complications.
--- NOTE | 2021-03-17 10:44 | NUR ---
First visit from the support associate. No needs right now.
[2021-03-17 11:35] VITALS: BP 137/74; PULSE 74; TEMP 98
[2021-03-17 15:58] VITALS: BP 98/75; PULSE 71; TEMP 98.1
--- NOTE | 2021-03-17 16:20 | NUR ---
Discharge education provided to patient. Educated on when to call provider and follow up appointment with cardiology. All questions answered. INT to left forarm discontinued, catheter tip intact. Denies further needs at this time. Patient ambulated out with surgical staff.
== END 2021-03-17 16:20 | disposition home or self-care (01) ==
LOC: MEDICAL 04:44 → SURG 06:09
PROVIDERS: Nurse Practitioner Family; ADMIT Student in an Organized Health Care Education/Training Program
DX: R07.9 Chest pain, unspecified (principal); I11.0 Hypertensive heart disease with heart failure; I50.20 Unspecified systolic (congestive) heart failure; I16.0 Hypertensive urgency; I25.10 Atherosclerotic heart disease of native coronary artery without angina pectoris; I73.9 Peripheral vascular disease, unspecified; E11.65 Type 2 diabetes mellitus with hyperglycemia; E78.5 Hyperlipidemia, unspecified; J44.9 Chronic obstructive pulmonary disease, unspecified; N39.0 Urinary tract infection, site not specified; N17.9 Acute kidney failure, unspecified; F17.200 Nicotine dependence, unspecified, uncomplicated; Z90.89 Acquired absence of other organs; Z90.710 Acquired absence of both cervix and uterus; Z20.822 Contact with and (suspected) exposure to COVID-19; Z79.4 Long term (current) use of insulin; Z79.82 Long term (current) use of aspirin; Z79.899 Other long term (current) drug therapy; Z79.02 Long term (current) use of antithrombotics/antiplatelets
CPT/HCPCS: G0378; G0379; J0696; J1815; J7030

== ENCOUNTER 2021-04-23 14:42 | Emergency (ER) | payer OTHER ==
[~2021-04-23] VITALS: Ht 167.6 cm; Wt 63.6 kg
[~2021-04-23 14:42] MED LIST changes: +PLAVIX 75MG TAB75 MG PO
[2021-04-23 15:03] VITALS: TEMP 98.8
[2021-04-23 15:22] LABS: BASO # 0.1 (0.0-0.2); BASO % 1.1 % (0.0-2.0); EOS # 0.1 (0.0-0.7); EOS % 1.3 % (0-4.0); GRAN # 7.8 (1.4-6.5); HEMATOCRIT 39.2 % (37.0-47.0); HEMOGLOBIN 13.1 g/dl (12.5-16.0); LYMPH # 2.6 (1.2-3.4); LYMPH % 23.2 % (20.0-51.0); MEAN CELL VOLUME 87 fl (80.0-100.0); MEAN CORPUSCULAR HEMOGLOBIN 29 pg (27.0-31.0); MEAN CORPUSCULAR HGB CONC 33 g/dl (33.0-37.0); MEAN PLATELET VOLUME 9.8 fl (7.4-10.4); MONO # 0.5 (0.1-0.6); MONO % 4.1 % (1.7-9.3); PLATELET COUNT 343 K/mm3 (130-400); RED BLOOD COUNT 4.49 M/mm3 (4.10-5.30); REDCELL DISTRIBUTION WIDTH-CV 12.8 % (11.5-14.5)
[2021-04-23 15:29] LABS: INR 0.9 (0.8-3.0); PROTHROMBIN TIME 10.3 SECONDS (9.7-12.8)
[2021-04-23 15:36] LABS: ALBUMIN 4.3 gm/dL (3.5-5.0); BILIRUBIN,TOTAL 0.2 mg/dL (0.0-1.0); CALCIUM 9.8 mg/dL (8.4-10.2); POTASSIUM 4.1 mmol/L (3.4-5.0); TOTAL PROTEIN 7.6 gm/dL (6.4-8.2)
[2021-04-23 15:47] LABS: TROPONIN-I 0.02 ng/mL (0.000-0.035)
[2021-04-23 16:40] VITALS: BP 120/72; PULSE 80
== END 2021-04-23 16:45 | disposition home or self-care (01) ==
LOC: COL.ER 14:42
PROVIDERS: Nurse Practitioner Primary Care
DX: R42 Dizziness and giddiness (principal); E11.649 Type 2 diabetes mellitus with hypoglycemia without coma; I25.10 Atherosclerotic heart disease of native coronary artery without angina pectoris; I10 Essential (primary) hypertension; E78.5 Hyperlipidemia, unspecified; J44.9 Chronic obstructive pulmonary disease, unspecified; E11.51 Type 2 diabetes mellitus with diabetic peripheral angiopathy without gangrene; Z95.9 Presence of cardiac and vascular implant and graft, unspecified; Z79.4 Long term (current) use of insulin; Z79.02 Long term (current) use of antithrombotics/antiplatelets; Z79.899 Other long term (current) drug therapy

== ENCOUNTER 2021-06-24 19:19 | Inpatient (IN) | payer OTHER ==
[~2021-06-24] VITALS: Wt 72.7 kg
[2021-06-24 20:01] LABS: BASO # 0.1 K/mm3 (0.0-0.2); EOS # 0.2 K/mm3 (0.0-0.7); EOS % 1.1 % (0-4.0); GRAN % 70.1 % (42.2-75.2); HEMATOCRIT 40.7 % (37.0-47.0); HEMOGLOBIN 13.4 g/dl (12.5-16.0); LYMPH # 3.1 K/mm3 (1.2-3.4); MEAN CELL VOLUME 87 fl (80.0-100.0); MEAN CORPUSCULAR HEMOGLOBIN 29 pg (27.0-31.0); MEAN CORPUSCULAR HGB CONC 33 g/dl (33.0-37.0); MEAN PLATELET VOLUME 9.7 fl (7.4-10.4); MONO # 0.8 K/mm3 (0.1-0.6); MONO % 5.4 % (1.7-9.3); PLATELET COUNT 421 K/mm3 (130-400); RED BLOOD COUNT 4.66 M/mm3 (4.10-5.30); REDCELL DISTRIBUTION WIDTH-CV 12.9 % (11.5-14.5)
[2021-06-24 20:08] LABS: PROTHROMBIN TIME 11.5 SECONDS (9.7-12.8)
[2021-06-24 20:21] LABS: BILIRUBIN,TOTAL 0.5 mg/dL (0.2-1.2); CALCIUM 10.7 mg/dL (8.4-10.2); CREATININE, serum 0.92 mg/dL (0.57-1.11); POTASSIUM 3.1 mmol/L (3.5-4.5); TOTAL PROTEIN 7.6 gm/dL (6.2-8.1)
[2021-06-24 20:28] LABS: TROPONIN-I 0.484 ng/mL (0.00-0.033)
[2021-06-24] MEDS ORDERED: COZAAR 25MG25 MG/TAB PO (20:55)
[2021-06-24] MEDS ORDERED: PLETAL 100MG T100 MG PO (20:58)
[2021-06-24] MEDS ORDERED: ASPIRIN 81M81 MG/TA2 PO (20:58)
[2021-06-24] MEDS ORDERED: PRALUENT P75 MG/1 ML SQ (20:58)
[2021-06-24] MEDS ORDERED: HUMALOG PEN100 U/ML SQ (20:59)
[2021-06-24] MEDS ORDERED: LANTUS100 U/ML SQ (20:59)
[2021-06-24] MEDS ORDERED: CELEXA40 MG PO (21:00)
[2021-06-24] MEDS ORDERED: LASIX 20MG TABL20 MG PO (21:00)
[2021-06-24] MEDS ORDERED: PROTONIX 40MG T40 MG PO (21:00)
[2021-06-24] MEDS ORDERED: D3-5050000 IU PO (21:00)
[2021-06-24] MEDS ORDERED: ONE-A-DAY ESSE1 EACH PO (21:00)
[2021-06-24] MEDS ORDERED: NORCO 325 MG-7.1 TAB PO (21:01)
[2021-06-24] MEDS ORDERED: FLEXERIL 1010 MG/TAB PO (21:01)
[2021-06-25] VITALS (171 sets, daily range): BP systolic 116–139; BP diastolic 67–68; PULSE 96–100; TEMP 97.8; O2SAT 91–100
[2021-06-25 08:37] LABS: BASO # 0.1 K/mm3 (0.0-0.2); EOS # 0.2 K/mm3 (0.0-0.7); EOS % 2.1 % (0-4.0); GRAN # 5.3 K/mm3 (1.4-6.5); GRAN % 54.6 % (42.2-75.2); HEMATOCRIT 37.5 % (37.0-47.0); HEMOGLOBIN 12.3 g/dl (12.5-16.0); LYMPH # 3.6 K/mm3 (1.2-3.4); LYMPH % 36.9 % (20.0-51.0); MEAN CELL VOLUME 87 fl (80.0-100.0); MEAN CORPUSCULAR HEMOGLOBIN 28 pg (27.0-31.0); MEAN CORPUSCULAR HGB CONC 33 g/dl (33.0-37.0); MEAN PLATELET VOLUME 9.9 fl (7.4-10.4); MONO # 0.5 K/mm3 (0.1-0.6); MONO % 4.9 % (1.7-9.3); PLATELET COUNT 327 K/mm3 (130-400); RED BLOOD COUNT 4.33 M/mm3 (4.10-5.30)
[2021-06-25 08:48] LABS: CHOLESTEROL RISK RATIO 2.5
[2021-06-25 08:56] LABS: TROPONIN-I 1.133 ng/mL (0.00-0.033)
--- NOTE | 2021-06-25 21:00 | NUR ---
Transferred from ICU to medical- VSS, Up in room, steady on feet, Tele on, o2 at 2L/nc, denies SOB, denies chest pain. Heparin drip at 10cc/hr- next hepxa in the AM. Understands NPO after MN for a heart cath tomorrow aAM.
[2021-06-26] VITALS (15 sets, daily range): BP systolic 112–155; BP diastolic 56–99; PULSE 101–114; TEMP 97.5–98.4
--- NOTE | 2021-06-26 03:41 | NUR ---
Called around 0200 and states she was SOB, o2 sats on 2L/nc were 97%, pt states she cannot lay back down due to SOB, Lung sounds with craclkes and wheezes, Lalitha RIOS called and respiratory treatment ordered and respiratory therapy came up and gave a treatment,, pt then up to bathroom without her o2 and sats only80%,, did come up rapidly to 95% on the 2 liters, pt states she feels full of fluid- lung sounds remain with crackles--Lalitha called again and informed, order for 10mg of IV lasix--this was given as ordered. Pt informed to just use BSC for tonight-- has voided 650 cc already since lasix was given- pt states she is feeling better
[2021-06-26 04:04] LABS: COLLECTION METHOD CLEAN CATCH
[2021-06-26 04:14] LABS: PH 6 (5-8); SQUAMOUS EPITHELIAL 0-2 /hpf; URINE APPEARANCE Clear; URINE BACTERIA Rare /hpf; URINE BILIRUBIN Negative (NEGATIVE); URINE BLOOD Negative (NEGATIVE); URINE COLOR Straw; URINE GLUCOSE Negative (NEGATIVE); URINE KETONE Negative (NEGATIVE); URINE LEUKOCYTE ESTERASE Negative (NEGATIVE); URINE NITRATE Negative (NEGATIVE); URINE PROTEIN(semi-quant) 1+ (NEGATIVE); URINE RBC 0-2 /hpf; URINE UROBILINOGEN Negative (NEGATIVE)
--- NOTE | 2021-06-26 05:20 | NUR ---
Resting quietly- o2 sats 98% on 2.5L/nc
--- NOTE | 2021-06-26 06:43 | NUR ---
Total of 1550cc out urine since IV lasix was given at 0300 this morning. NPO for heart cath
[2021-06-26 07:20] LABS: MEAN CELL VOLUME 87 fl (80.0-100.0); MEAN CORPUSCULAR HEMOGLOBIN 28 pg (27.0-31.0); MEAN CORPUSCULAR HGB CONC 33 g/dl (33.0-37.0); MEAN PLATELET VOLUME 10.6 fl (7.4-10.4); PLATELET COUNT 301 K/mm3 (130-400); RED BLOOD COUNT 4.22 M/mm3 (4.10-5.30); REDCELL DISTRIBUTION WIDTH-CV 13.1 % (11.5-14.5)
[2021-06-26 07:26] LABS: HEMATOCRIT 36.7 % (37.0-47.0)
[2021-06-26 07:39] LABS: INR 0.9 (0.8-3.0); PROTHROMBIN TIME 10.3 SECONDS (9.7-12.8)
[2021-06-26 07:41] LABS: PARTIAL THROMBOPLASTIN TIME 42.1 SECONDS (26.0-37.0)
[2021-06-26 08:45] LABS: CALCIUM 9.1 mg/dL (8.4-10.2); CREATININE, serum 0.85 mg/dL (0.57-1.11); POTASSIUM 3.8 mmol/L (3.5-4.5)
[2021-06-26 08:58] LABS: TROPONIN-I 0.828 ng/mL (0.00-0.033)
--- NOTE | 2021-06-26 10:09 | NUR ---
Initial visit; Patient thanked Anodic Operator for looking in on her and helping her contact her nurse. Anodic Operator offered God's blessings.
--- NOTE | 2021-06-26 11:26 | NUR ---
MELISSA met with the patient to discuss discharge plan. The patient lives in [place] with her , Harpreet (ph#[phone]). She reports independence with ADLs and does not have any DME. The patient's primary care provider is Catie Graves APRN at [facility] and she receives her medications from [facility] in [place]. She reports no difficulties obtaining her meds at this time. The patient does not have a DPOA-HC, but she was interested in obtaining a form. MELISSA provided. The patient plans to return home with her upon discharge. The patient is currently on 2 liters of oxygen. She states that she used to have home oxygen, but that it was becoming toe expensive and she could not afford it, so she had to return it back to the DME company. She reports that this was awhile ago and she believes she got the oxygen from [facility] in [place]. SW to continue to monitor. *Discharge plan: home with *
--- NOTE | 2021-06-26 14:03 | NUR ---
SEE MERGE FOR MEDICATION ADMINISTRATION TIMES/DOSAGES AND INTRA/POST SEDATION ASSESSMENT.
--- NOTE | 2021-06-26 15:08 | NUR ---
Pt post-PCI. Received Angiomax during intervention; orders from Dr. Deng that Angiomax may be DC'd at this time. Pt has been receiving Plavix with dose administered today. MD peralta with pt returning to Medical floor.
--- NOTE | 2021-06-26 19:28 | NUR ---
THIS PATIENT HAD AN EVENTFUL DAY. PT WAS NPO FOR HEART CATH; SHE WAS ON A HEPARIN GTT. CARDIAC CATHLAB TOOK PATIENT FOR CATH AND WHEN SHE RETURNED, THE PATIENT BEGAN TO BLEED FROM THE RIGHT AC IV SITE. THE PATIENT HAD BEEN GIVEN ANGIOMAX FOR HER STENT PLACEMENT IN THE RCA. PRESSURE HELD BY ALVERTO GRIGSBY RN. COBAN WRAPPED AND IN PLACE. NO AIR REMOVED FROM TR BAND DUE TO EXCESSIVE BLEEDING FROM THE RIGHT. PT DID HAVE AN ELEVATED BLOOD SUGAR, BUT WAS CHOOSING NOT TO EAT AT THAT TIME, SO NO INSULIN WAS GIVEN. GEOTECHNICAL OPERATING ENGINEER RN IS AWARE. PT IS ON THE POTASSIUM PROTOCOL, PER ORDERS SHE WAS TO RECEIVE 2 BAGS 10MEQ POTASSIUM, THE IV SITE AND UP THE ARM WERE BURNING, SO THE PATIENT WAS UNABLE TO HANDLE THE TREATMENT. AT THAT TIME; CARDIAC BALLET DANCER HAD ARRIVED TO TAKE THE PATIENT, SO REPLACEMENT WOULD NEED TO HAPPEN POST CATH. GEOTECHNICAL OPERATING ENGINEER RN AWARE. REPORT GIVEN TO GEOTECHNICAL OPERATING ENGINEER RNSERA. NO OTHER CONCERNS.
--- NOTE | 2021-06-26 20:30 | NUR ---
Patient is resting in bed, alert and oriented x 4, VSS, left radial band in place. Complains of pain in her back and arms, prn provided. Tele in place, NSR. Right AC with elastic baandage after constant bleeding reported by day shift RN, removed. No further bleeding. Potassiumm replaced. Medications provided. Assessment complted. No further needs at this time. Call ligth within reach.
[2021-06-27 00:44] VITALS: BP 144/90; PULSE 102; TEMP 97.8
[2021-06-27 04:58] VITALS: BP 133/81; PULSE 96; TEMP 98.1
[2021-06-27 06:52] LABS: HEMATOCRIT 37.3 % (37.0-47.0); HEMOGLOBIN 12.5 g/dl (12.5-16.0); MEAN CELL VOLUME 86 fl (80.0-100.0); MEAN CORPUSCULAR HEMOGLOBIN 29 pg (27.0-31.0); MEAN CORPUSCULAR HGB CONC 34 g/dl (33.0-37.0); PLATELET COUNT 320 K/mm3 (130-400); RED BLOOD COUNT 4.32 M/mm3 (4.10-5.30)
[2021-06-27 07:13] LABS: CALCIUM 9.6 mg/dL (8.4-10.2); CREATININE, serum 0.91 mg/dL (0.57-1.11); POTASSIUM 4.1 mmol/L (3.5-4.5)
[2021-06-27 07:14] VITALS: BP 138/94; PULSE 106; TEMP 98.6
--- NOTE | 2021-06-27 07:18 | NUR ---
Patient has had a calm night. All needs met. Shift report given to day nurse.
[2021-06-27] MEDS ORDERED: PROAIR HFA0.09 MG/AC IH (09:03)
--- NOTE | 2021-06-27 09:06 | NUR ---
Scheduled medication given. Shift assessment preformed. Patient denies any chest pain. Currently requiring 2L of O2 via nasal cannula. Exercise Ox to be preformed before dishcarge. Left radial site clean, dry, and intact. Patient denies any further needs at this time. Call light in reach. VSS. Patient A&O.
--- NOTE | 2021-06-27 10:23 | NUR ---
pt walked aprrox. 100 yards with some soa. She was 95% on R/A AT rest. Her spo2 maintained at 91% on room air with ambulation. No o2 required
--- NOTE | 2021-06-27 10:55 | NUR ---
An exercise oximetry was ordered. SW confirmed with RT that the patient did not qualify for oxygen. The patient is to tentatively discharge back home with her today, 06/27. No additional needs at this time.
[2021-06-27 11:56] VITALS: BP 114/61; PULSE 85; TEMP 98.2
[2021-06-27 15:37] VITALS: BP 102/58; PULSE 82; TEMP 99.2
--- NOTE | 2021-06-27 16:23 | NUR ---
Patient deemed fit for discharge. IV DC'd, catheter intact, no signs of phlebitis. Discharge education/instructions given. Questions and concerns answered. VSS. Patient A&O. Does not want insulin before she discharges, states that she will take it at home. Denies any chest pain, SOA, chest tightness, or further needs at this time. Waiting on to transport home. Call light in reach.
--- NOTE | 2021-06-27 16:55 | NUR ---
Patient ambulated from building escorted by [facility] Staff. transporting home.
== END 2021-06-27 16:56 | disposition home or self-care (01) | DRG 247 ==
LOC: COL.ER 19:19 → MEDICAL 06-25 12:20 → ICU 06-25 12:20 → MEDICAL 06-25 19:35
PROVIDERS: Nurse Practitioner; Nurse Practitioner Family; Personal Emergency Response Attendant; Physician Assistant; ADMIT Family Medicine
PROC: 027034Z Dilation of Coronary Artery, One Artery with Drug-eluting Intraluminal Device, Percutaneous Approach (ICD-10-PCS; principal; 2021-06-26)
PROC: 4A023N7 Measurement of Cardiac Sampling and Pressure, Left Heart, Percutaneous Approach (ICD-10-PCS; 2021-06-26)
PROC: B2111ZZ Fluoroscopy of Multiple Coronary Arteries using Low Osmolar Contrast (ICD-10-PCS; 2021-06-26)
DX: I21.4 Non-ST elevation (NSTEMI) myocardial infarction (principal); I50.22 Chronic systolic (congestive) heart failure; R65.10 Systemic inflammatory response syndrome (SIRS) of non-infectious origin without acute organ dysfunction; J96.11 Chronic respiratory failure with hypoxia; I11.0 Hypertensive heart disease with heart failure; I25.10 Atherosclerotic heart disease of native coronary artery without angina pectoris; E87.6 Hypokalemia; E83.52 Hypercalcemia; E11.51 Type 2 diabetes mellitus with diabetic peripheral angiopathy without gangrene; J44.9 Chronic obstructive pulmonary disease, unspecified; F17.210 Nicotine dependence, cigarettes, uncomplicated; Z95.5 Presence of coronary angioplasty implant and graft; Z88.2 Allergy status to sulfonamides; Z79.4 Long term (current) use of insulin; Z23 Encounter for immunization
CPT/HCPCS: 99223-AI; 99232-AI; 99239; C1725; C1769; C1874; C1887; C9600; J0583; J1644; J1815; J1940; J2250; J2405; J3010; J3480; J7030; Q9967

== ENCOUNTER 2021-06-29 09:26 | Inpatient (IN) | payer OTHER ==
[2021-06-29] VITALS (14 sets, daily range): BP systolic 107–158; BP diastolic 60–103; PULSE 86–111; TEMP 97.1–98.7
[~2021-06-29] VITALS: Ht 167.6 cm; Wt 90.0 kg
[~2021-06-29 09:26] MED LIST changes: +ASPIRIN 81M81 MG/TA2 PO; +HUMALOG PEN100 U/ML SQ; +ONE-A-DAY ESSE1 EACH PO; +PRALUENT P75 MG/1 ML SQ; +PROAIR HFA0.09 MG/AC IH
[2021-06-29 09:45] LABS: BASO # 0.1 K/mm3 (0.0-0.2); BASO % 0.8 % (0.0-2.0); EOS # 0.1 K/mm3 (0.0-0.7); EOS % 0.9 % (0-4.0); GRAN # 9.4 K/mm3 (1.4-6.5); GRAN % 79.6 % (42.2-75.2); HEMOGLOBIN 13.5 g/dl (12.5-16.0); LYMPH # 1.8 K/mm3 (1.2-3.4); LYMPH % 15.1 % (20.0-51.0); MEAN CELL VOLUME 88 fl (80.0-100.0); MEAN CORPUSCULAR HEMOGLOBIN 29 pg (27.0-31.0); MEAN CORPUSCULAR HGB CONC 33 g/dl (33.0-37.0); MONO # 0.4 K/mm3 (0.1-0.6); MONO % 3.1 % (1.7-9.3); PLATELET COUNT 349 K/mm3 (130-400); RED BLOOD COUNT 4.67 M/mm3 (4.10-5.30)
[2021-06-29 09:52] LABS: PROTHROMBIN TIME 11.3 SECONDS (9.7-12.8)
[2021-06-29 09:55] LABS: PARTIAL THROMBOPLASTIN TIME 26.1 SECONDS (26.0-37.0)
--- NOTE | 2021-06-29 10:25 | NUR ---
SEE MERGE DOCUMENTATION FOR MEDICATION ADMINISTRATION TIMES AND INTRA/POST PROCEDURE SEDATION ASSESSMENTS.
[2021-06-29 10:32] LABS: BILIRUBIN,TOTAL 0.5 mg/dL (0.2-1.2); CALCIUM 9.8 mg/dL (8.4-10.2); POTASSIUM 5.2 mmol/L (3.5-4.5); TOTAL PROTEIN 7.1 gm/dL (6.2-8.1)
[2021-06-29 10:46] LABS: TROPONIN-I 0.257 ng/mL (0.00-0.033)
[2021-06-29 11:02] LABS: ALBUMIN 3.7 gm/dL (3.5-5.0); CREATININE, serum 1.29 mg/dL (0.57-1.11)
--- NOTE | 2021-06-29 13:49 | NUR ---
SW met with patient to discuss discharge planning. Patient was admitted and discharged a few days ago with cardiac issues. Patient reports that she lives with her in [place] and sees Perla Graves APRN, as her primary dr. She gets her medications from [facility] in [place] without difficulty. 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 Patient states she was fully independent prior. Patient does not have an MPOA but decided to complete one. This worker assisted with the completion of the MPOA, provided patient with the original and 3 copies. SW placed copy of her chart. SW will continue to follow patient for any discharge needs.
--- NOTE | 2021-06-29 15:50 | NUR ---
Right femoral artery 6F sheath removed by Óscar Petersen - manual pressure held until 1550. Pt tolerated hemostasis well Pt educated on groin precautions
[2021-06-30] VITALS: BP 110/63; PULSE 91; TEMP 97.8
[2021-06-30 04:00] VITALS: BP 90/56; PULSE 101; TEMP 97.8
[2021-06-30 05:26] LABS: BASO % 0.4 % (0.0-2.0); EOS # 0.2 K/mm3 (0.0-0.7); EOS % 1.4 % (0-4.0); GRAN # 7.9 K/mm3 (1.4-6.5); GRAN % 72.9 % (42.2-75.2); LYMPH # 2.2 K/mm3 (1.2-3.4); LYMPH % 20.4 % (20.0-51.0); MEAN CELL VOLUME 88 fl (80.0-100.0); MEAN CORPUSCULAR HGB CONC 33 g/dl (33.0-37.0); MEAN PLATELET VOLUME 9.9 fl (7.4-10.4); MONO # 0.5 K/mm3 (0.1-0.6); MONO % 4.7 % (1.7-9.3); PLATELET COUNT 315 K/mm3 (130-400); RED BLOOD COUNT 3.89 M/mm3 (4.10-5.30); REDCELL DISTRIBUTION WIDTH-CV 13.2 % (11.5-14.5)
[2021-06-30 05:30] LABS: HEMATOCRIT 34.3 % (37.0-47.0); HEMOGLOBIN 11.2 g/dl (12.5-16.0); MEAN CORPUSCULAR HEMOGLOBIN 29 pg (27.0-31.0)
[2021-06-30 05:41] LABS: CALCIUM 9.3 mg/dL (8.4-10.2); CREATININE, serum 1.01 mg/dL (0.57-1.11); POTASSIUM 3.4 mmol/L (3.5-4.5)
--- NOTE | 2021-06-30 07:00 | NUR ---
RECEIVED REPORT FROM LATIA LOPEZ. PT SLEEPING ON RA. VSS. CALL LIGHT WITHIN REACH.
[2021-06-30 08:00] VITALS: BP 93/57; PULSE 88; TEMP 98
[2021-06-30 12:00] VITALS: BP 99/58; PULSE 85; TEMP 98
[2021-06-30 16:00] VITALS: BP 91/54; PULSE 82; TEMP 98
--- NOTE | 2021-06-30 16:19 | NUR ---
REPORT CALLED TO LATIA PINEDO. PT TRANSFERRED VIA WC ON RA TO 358. ALL PERSONAL BELONGINGS SENT WITH PT. PT ON TELEMETRY.
--- NOTE | 2021-06-30 17:41 | NUR ---
PT HAD A BLOOD SUGAR OF 37. GIVEN CRACKERS AND JUICE. CALLED ERVINSIMRAN AND WAS INSTRUCTED TO GIVE DEXTROSE. WILL CONTINUE TO MONITOR.
[2021-06-30 20:51] VITALS: BP 89/48; PULSE 80; TEMP 99.4
--- NOTE | 2021-06-30 22:56 | NUR ---
Patient assessed around 2109. Alert and oriented x 4, and able to make needs known. Denies having pain and discomfort. Took shower. Denies chest pain and discomfort. Telemetry in place. HRR. Right groin heart cath site with dressing CDI. Voices no questions, needs, or concerns at this time. BP was low. Called VIMAL Doty, and order received to hold HS Metoprolol. Resting in bed with call light within reach.
[2021-07-01 00:04] VITALS: BP 94/34; PULSE 83; TEMP 98.2
--- NOTE | 2021-07-01 00:09 | NUR ---
Called VIMAL Doty with BP. No new orders at this time.
[2021-07-01 04:25] VITALS: BP 126/59; PULSE 85; TEMP 97.6
--- NOTE | 2021-07-01 06:09 | NUR ---
Patient has denied pain and discomfort this shift. BP better this morning, see VS. In bed with call light within reach.
[2021-07-01 08:09] LABS: BASO # 0.1 K/mm3 (0.0-0.2); BASO % 0.8 % (0.0-2.0); EOS # 0.3 K/mm3 (0.0-0.7); EOS % 2.9 % (0-4.0); GRAN # 5.8 K/mm3 (1.4-6.5); GRAN % 64.6 % (42.2-75.2); HEMATOCRIT 35.4 % (37.0-47.0); HEMOGLOBIN 11.4 g/dl (12.5-16.0); LYMPH # 2.3 K/mm3 (1.2-3.4); LYMPH % 25.7 % (20.0-51.0); MEAN CELL VOLUME 89 fl (80.0-100.0); MEAN CORPUSCULAR HEMOGLOBIN 29 pg (27.0-31.0); MEAN CORPUSCULAR HGB CONC 32 g/dl (33.0-37.0); MEAN PLATELET VOLUME 10.3 fl (7.4-10.4); MONO # 0.5 K/mm3 (0.1-0.6); MONO % 5.7 % (1.7-9.3); PLATELET COUNT 325 K/mm3 (130-400); RED BLOOD COUNT 3.96 M/mm3 (4.10-5.30); REDCELL DISTRIBUTION WIDTH-CV 13.2 % (11.5-14.5)
[2021-07-01 08:14] VITALS: BP 88/54; PULSE 85; TEMP 98.1
[2021-07-01 08:28] LABS: CALCIUM 9.2 mg/dL (8.4-10.2)
--- NOTE | 2021-07-01 09:59 | NUR ---
PT IS RESTING IN BED. MORNING MEDICATIONS GIVEN. SHIFT ASSESSMENT COMPLETED. PT HAS NO COMPLAINTS OF PAIN AT THIS TIME. IS EAGER TO GO HOME. WILL CONTINUE TO MONITOR.
[2021-07-01 12:00] VITALS: BP 113/62; PULSE 83; TEMP 98.5
[2021-07-01] MEDS ORDERED: TOPROL XL 50MG50 MG PO (15:32)
[2021-07-01] MEDS ORDERED: IMDUR 30MG30 MG/TAB PO (15:35)
[2021-07-01] MEDS ORDERED: BRILINTA90 MG PO (15:38)
[2021-07-01 16:05] VITALS: BP 113/68; PULSE 84
== END 2021-07-01 16:22 | disposition home or self-care (01) | DRG 247 ==
LOC: COL.ER 09:26 → ICU 12:03 → MEDICAL 06-30 17:03
PROVIDERS: Nurse Practitioner; Student in an Organized Health Care Education/Training Program; ADMIT Internal Medicine Interventional Cardiology
PROC: 027034Z Dilation of Coronary Artery, One Artery with Drug-eluting Intraluminal Device, Percutaneous Approach (ICD-10-PCS; principal; 2021-06-29)
PROC: 4A023N7 Measurement of Cardiac Sampling and Pressure, Left Heart, Percutaneous Approach (ICD-10-PCS; 2021-06-29)
PROC: B211YZZ Fluoroscopy of Multiple Coronary Arteries using Other Contrast (ICD-10-PCS; 2021-06-29)
DX: I21.3 ST elevation (STEMI) myocardial infarction of unspecified site (principal); I50.22 Chronic systolic (congestive) heart failure; I25.10 Atherosclerotic heart disease of native coronary artery without angina pectoris; Z95.5 Presence of coronary angioplasty implant and graft; I11.0 Hypertensive heart disease with heart failure; E11.51 Type 2 diabetes mellitus with diabetic peripheral angiopathy without gangrene; J44.9 Chronic obstructive pulmonary disease, unspecified; Z90.710 Acquired absence of both cervix and uterus; Z79.82 Long term (current) use of aspirin; F17.200 Nicotine dependence, unspecified, uncomplicated
CPT/HCPCS: 99223-AI; 99233-AI; 99239; C1725; C1769; C1874; C1887; C1894; J1644; J1815; J1940; J2250; J2405; Q9967

== ENCOUNTER 2021-08-21 12:34 | Day surgery (SDC) | payer OTHER ==
[2021-08-21] VITALS (15 sets, daily range): BP systolic 96–127; BP diastolic 51–78; PULSE 80–95; TEMP 97.5–98
[~2021-08-21] VITALS: Ht 167.6 cm; Wt 65.0 kg
[~2021-08-21 12:34] MED LIST changes: +IMDUR 30MG30 MG/TAB PO; +TOPROL XL 50MG50 MG PO
[2021-08-21 13:49] LABS: HEMATOCRIT 40.5 % (37.0-47.0); HEMOGLOBIN 13.4 g/dl (12.5-16.0); MEAN CELL VOLUME 88 fl (80.0-100.0); MEAN CORPUSCULAR HEMOGLOBIN 29 pg (27-31); MEAN CORPUSCULAR HGB CONC 33 g/dl (33.0-37.0); MEAN PLATELET VOLUME 9.7 fl (7.4-10.4); PLATELET COUNT 393 K/mm3 (130-400); RED BLOOD COUNT 4.61 M/mm3 (4.10-5.30); REDCELL DISTRIBUTION WIDTH-CV 13.4 % (11.5-14.5)
[2021-08-21 14:01] LABS: INR 0.9 (0.8-3.0); PROTHROMBIN TIME 9.4 SECONDS (9.7-12.8)
[2021-08-21 14:03] LABS: PARTIAL THROMBOPLASTIN TIME 27.7 SECONDS (26.0-37.0)
[2021-08-21 14:09] LABS: CALCIUM 9.5 mg/dL (8.4-10.2); CREATININE, serum 1.33 mg/dL (0.57-1.11); POTASSIUM 4.3 mmol/L (3.5-4.5)
--- NOTE | 2021-08-21 15:06 | NUR ---
Preparing for heart cath. Pt's glucose checked and found [address] Deng contacted. Order for 50% Dextrose 25g IV push now. Order read back and verified with .
--- NOTE | 2021-08-21 15:41 | NUR ---
SEE MERGE DOCUMENTATION FOR MEDICATION ADMINISTRATION TIMES AND INTRA/POST PROCEDURE SEDATION ASSESSMENTS.
--- NOTE | 2021-08-21 16:50 | NUR ---
Pt heart cath complete. Pt took Brilinta and Aspirin this morning, has been on these medications for multiple months. Angiomax infusing during procedure. Order from Dr Deng that Angiomax may be DC'd on transfer to Medical floor. Also, order that no extra Brilinta or Aspirin needs administered at this time. Both of these orders read back and confirmed with Dr Deng.
--- NOTE | 2021-08-21 17:00 | NUR ---
PT ARRIVED TO ROOM, PAIN IN LEG SUBSIDING, PT EAGER FOR MEAL, NO OTHER NEEDS
--- NOTE | 2021-08-21 18:47 | NUR ---
BRITTNEE HAS FLAT TIME OF 2 HOURS, WILL END AT 1900
[2021-08-21 21:31] LABS: COLLECTION METHOD CLEAN CATCH
[2021-08-21 21:48] LABS: MUCOUS Present (NOT PRESENT); PH 5 (5-8); SQUAMOUS EPITHELIAL 0-2 /hpf (0-10); URINE APPEARANCE Hazy (CLEAR/HAZY); URINE BACTERIA Occasional /hpf (NONE SEEN); URINE BILIRUBIN Negative (NEGATIVE); URINE BLOOD Negative (NEGATIVE); URINE COLOR Amber (YELLOW); URINE GLUCOSE 1+ (NEGATIVE); URINE KETONE Negative (NEGATIVE); URINE LEUKOCYTE ESTERASE Negative (NEGATIVE); URINE NITRATE Positive (NEGATIVE); URINE PROTEIN(semi-quant) 2+ (NEGATIVE); URINE UROBILINOGEN Negative (NEGATIVE)
--- NOTE | 2021-08-21 23:29 | NUR ---
Patient alert and oriented. Patient c/o burning pain and urgency upon urination. UA collected and sent to lab. Called VIMAL Doty for UA result. Per VIMAL Doty, will start ABX for UTI. Patient's right femoral heart cath site dressing C/D/I. Heart cath site skin soft and no hematoma. Peripheral pulses palpable. Patient reports moderate pain to her heart cath site and also to her bilateral lower extremities. PRN Noco given for pain around 8pm. All scheduled meds given per OCT. Patient tolerating PO intake. Ate 50-60% of dinner and drinking adequate water. Patient's BS 59 around 23:15 pm. Apple juice and honey gram crackers with peanut butter provided. Call light in reach. Will continue to monitor.
[2021-08-22 04:06] VITALS: BP 125/70; PULSE 87; TEMP 98
[2021-08-22 07:00] LABS: BASO # 0.1 K/mm3 (0.0-0.2); BASO % 0.6 % (0.0-2.0); EOS # 0.2 K/mm3 (0.0-0.7); EOS % 1.7 % (0.0-4.0); GRAN # 9.1 K/mm3 (1.4-6.5); GRAN % 67.6 % (42.2-75.2); LYMPH # 3.6 K/mm3 (1.2-3.4); LYMPH % 26.4 % (20.0-51.0); MEAN CELL VOLUME 90 fl (80.0-100.0); MEAN CORPUSCULAR HGB CONC 33 g/dl (33.0-37.0); MONO # 0.4 K/mm3 (0.1-0.6); MONO % 3.3 % (1.7-9.3); PLATELET COUNT 329 K/mm3 (130-400); RED BLOOD COUNT 3.82 M/mm3 (4.10-5.30); REDCELL DISTRIBUTION WIDTH-CV 13.5 % (11.5-14.5)
[2021-08-22 07:09] LABS: HEMATOCRIT 34.2 % (37.0-47.0); MEAN CORPUSCULAR HEMOGLOBIN 29 pg (27-31)
[2021-08-22 07:10] LABS: HEMOGLOBIN 11.2 g/dl (12.5-16.0)
[2021-08-22 07:15] LABS: CALCIUM 8.5 mg/dL (8.4-10.2); CREATININE, serum 0.94 mg/dL (0.57-1.11); POTASSIUM 4.2 mmol/L (3.5-4.5)
[2021-08-22 08:10] VITALS: BP 118/67; PULSE 86; TEMP 97.9
--- NOTE | 2021-08-22 09:22 | NUR ---
PT PLEASANT, AOX4, ASSESSMENT PERFORMED, MEDICATIONS GVIEN, PAIN MEDICATION GIVEN PER PT REQUEST, R GROIN SITE SOFT, TENDER TO TOUCH, NO HEMATOMA, DRESSING CDI, NO OTHER NEEDS
[2021-08-22] MEDS ORDERED: NITRO-DUR0.2 MG/PAT TD (09:52)
[2021-08-22] MEDS ORDERED: TRIMPEX100 MG PO (10:31)
[2021-08-22] MEDS ORDERED: NICODERM C21 MG/PATC TD (10:51)
--- NOTE | 2021-08-22 10:59 | NUR ---
Sw met with the pt who stated her preference to return home once medically stable. The pt lives at home with her spouse, Harpreet, . The pt does have DPOA-HC and is in chart. The pt states prior to being admitted she is indenpendent on all ADLs and used a Nebulizer, glucometer. The pt PCP is Georgette Ribera and gets her medication from [facility]. The pt has never used services and is not interested in services. No other needs stated at this time. Sw to await further recommendations and follow up as needed. D/c: Home
--- NOTE | 2021-08-22 11:15 | NUR ---
DISCHARGE EDUCATION PROVIDED, EDUCATED ON PRECAUTIONS WITH CATH SITE, IV REMOVED, TELE REMOVED, PT ESCORTED OUT VIA WHEELCHAIR WITH PT BELONGINGS. NO OTHER NEEDS
== END 2021-08-22 11:15 | disposition home or self-care (01) ==
LOC: COL.CAR 12:34 → MEDICAL 18:44 → COL.CAR 08-22 11:15
PROVIDERS: Internal Medicine Interventional Cardiology; Nurse Practitioner
DX: I25.10 Atherosclerotic heart disease of native coronary artery without angina pectoris (principal); I11.0 Hypertensive heart disease with heart failure; I73.9 Peripheral vascular disease, unspecified; I50.22 Chronic systolic (congestive) heart failure; E78.5 Hyperlipidemia, unspecified; E11.9 Type 2 diabetes mellitus without complications; Z95.818 Presence of other cardiac implants and grafts; Z79.82 Long term (current) use of aspirin; Z79.899 Other long term (current) drug therapy; Z79.84 Long term (current) use of oral hypoglycemic drugs; Z79.4 Long term (current) use of insulin
CPT/HCPCS: OP; C1725; C1760; C1769; C1874; C1887; C1894; C9600; J0583; J0696; J1644; J1815; J2250; J3010; Q9967

== ENCOUNTER 2022-01-01 19:03 | Emergency (ER) | payer OTHER ==
[~2022-01-01] VITALS: Ht 167.6 cm; Wt 61.4 kg
[~2022-01-01 19:03] MED LIST changes: +NICODERM C21 MG/PATC TD; +NITRO-DUR0.2 MG/PAT TD; +TRIMPEX100 MG PO
[2022-01-01 19:11] VITALS: TEMP 98.2
[2022-01-01 20:04] LABS: BASO # 0.1 K/mm3 (0.0-0.2); BASO % 1.2 % (0.0-2.0); EOS # 0.2 K/mm3 (0.0-0.7); EOS % 2.9 % (0.0-4.0); GRAN # 4.9 K/mm3 (1.4-6.5); GRAN % 59.6 % (42.2-75.2); HEMATOCRIT 38.1 % (37.0-47.0); HEMOGLOBIN 12.9 g/dl (12.5-16.0); LYMPH # 2.7 K/mm3 (1.2-3.4); LYMPH % 32.6 % (20.0-51.0); MEAN CELL VOLUME 86 fl (80.0-100.0); MEAN CORPUSCULAR HEMOGLOBIN 29 pg (27-31); MEAN CORPUSCULAR HGB CONC 34 g/dl (33.0-37.0); MEAN PLATELET VOLUME 9.8 fl (7.4-10.4); MONO # 0.3 K/mm3 (0.1-0.6); MONO % 3.3 % (1.7-9.3); PLATELET COUNT 372 K/mm3 (130-400); RED BLOOD COUNT 4.44 M/mm3 (4.10-5.30); REDCELL DISTRIBUTION WIDTH-CV 13.1 % (11.5-14.5)
[2022-01-01 20:20] LABS: ALANINE AMINOTRANSFERASE 14 U/L (0-55); ALBUMIN 4.2 gm/dL (3.5-5.0); ALKALINE PHOSPHATASE 106 U/L (40-150); ANION GAP 16 mmol/L (7-16); AST,SGOT 15 U/L (5-34); BILIRUBIN,TOTAL 0.4 mg/dL (0.2-1.2); BLOOD UREA NITROGEN 34 mg/dL (10-20); CALCIUM 10.1 mg/dL (8.4-10.2); CARBON DIOXIDE 24 mmol/L (22-29); CHLORIDE 99 mmol/L (98-107); CREATININE, serum 1.77 mg/dL (0.57-1.11); GLUCOSE 181 mg/dL (70-99); LIPASE 74 U/L (8-78); POTASSIUM 3.5 mmol/L (3.5-4.5); SODIUM 139 mmol/L (136-145); TOTAL PROTEIN 7.7 gm/dL (6.2-8.1)
[2022-01-01 20:28] LABS: ACETONE,SERUM NEGATIVE
[2022-01-01 20:43] LABS: INR 0.9 (0.8-3.0); PROTHROMBIN TIME 10.2 SECONDS (9.7-12.8)
[2022-01-01 20:46] LABS: PARTIAL THROMBOPLASTIN TIME 27.7 SECONDS (26.0-37.0)
[2022-01-01 21:10] LABS: TROPONIN-I 0.059 ng/mL (0.00-0.033)
[2022-01-01 22:30] VITALS: BP 123/65; PULSE 101
== END 2022-01-01 23:12 | disposition short-term general hospital (02) ==
LOC: COL.ER 19:03
PROVIDERS: Student in an Organized Health Care Education/Training Program
DX: I21.4 Non-ST elevation (NSTEMI) myocardial infarction (principal); N17.9 Acute kidney failure, unspecified; R77.8 Other specified abnormalities of plasma proteins; I50.9 Heart failure, unspecified; E11.65 Type 2 diabetes mellitus with hyperglycemia; Z95.0 Presence of cardiac pacemaker; Z95.5 Presence of coronary angioplasty implant and graft; Z79.82 Long term (current) use of aspirin; Z79.4 Long term (current) use of insulin
CPT/HCPCS: J1644; J7040

== ENCOUNTER 2022-02-02 23:10 | Emergency (ER) | payer OTHER ==
[~2022-02-02] VITALS: Ht 167.6 cm; Wt 64.5 kg
[2022-02-02 23:21] VITALS: TEMP 97.8
[2022-02-02 23:56] LABS: BASO # 0.1 K/mm3 (0.0-0.2); BASO % 1.2 % (0.0-2.0); EOS # 0.4 K/mm3 (0.0-0.7); EOS % 3.5 % (0.0-4.0); GRAN # 6.6 K/mm3 (1.4-6.5); GRAN % 66.6 % (42.2-75.2); HEMOGLOBIN 10.3 g/dl (12.5-16.0); LYMPH # 2.3 K/mm3 (1.2-3.4); LYMPH % 23.4 % (20.0-51.0); MEAN CELL VOLUME 90 fl (80.0-100.0); MEAN CORPUSCULAR HEMOGLOBIN 29 pg (27-31); MEAN CORPUSCULAR HGB CONC 32 g/dl (33.0-37.0); MEAN PLATELET VOLUME 9.9 fl (7.4-10.4); MONO # 0.5 K/mm3 (0.1-0.6); MONO % 4.7 % (1.7-9.3); PLATELET COUNT 351 K/mm3 (130-400); RED BLOOD COUNT 3.54 M/mm3 (4.10-5.30); REDCELL DISTRIBUTION WIDTH-CV 13.7 % (11.5-14.5)
[2022-02-02 23:57] LABS: HEMATOCRIT 31.8 % (37.0-47.0)
[2022-02-03 00:15] LABS: CALCIUM 9.4 mg/dL (8.4-10.2); CREATININE, serum 1.69 mg/dL (0.57-1.11); POTASSIUM 3.8 mmol/L (3.5-4.5)
[2022-02-03] MEDS ORDERED: LASIX 40MG TABL40 MG PO (00:22)
[2022-02-03] MEDS ORDERED: BASAGLAR K100 UNIT/1 SQ (00:23)
[2022-02-03] MEDS ORDERED: TOPROL XL100 MG PO (00:24)
[2022-02-03] MEDS ORDERED: LYRICA 75MG CAP75 MG PO (00:25)
[2022-02-03] MEDS ORDERED: VISTARIL 2525 MG/CAP PO (00:25)
[2022-02-03] MEDS ORDERED: CRESTOR40 MG PO (00:25)
[2022-02-03] MEDS ORDERED: ZOLOFT 100MG100 MG PO (00:25)
[2022-02-03 00:28] LABS: TROPONIN-I 0.035 ng/mL (0.00-0.033)
[2022-02-03 02:15] VITALS: BP 105/66; PULSE 70
== END 2022-02-03 02:26 | disposition short-term general hospital (02) ==
LOC: COL.ER 23:10
PROVIDERS: Emergency Medicine
DX: I21.3 ST elevation (STEMI) myocardial infarction of unspecified site (principal); M54.6 Pain in thoracic spine; Z20.822 Contact with and (suspected) exposure to COVID-19; Z28.310 Unvaccinated for COVID-19; Z95.5 Presence of coronary angioplasty implant and graft
CPT/HCPCS: J1644; J3010

== ENCOUNTER 2022-02-05 16:11 | Emergency (ER) | payer OTHER ==
[~2022-02-05] VITALS: Ht 167.6 cm; Wt 66.8 kg
[~2022-02-05 16:11] MED LIST changes: +BASAGLAR K100 UNIT/1 SQ; +CRESTOR40 MG PO; +LASIX 40MG TABL40 MG PO; +VISTARIL 2525 MG/CAP PO; +ZOLOFT 100MG100 MG PO
[2022-02-05 16:24] VITALS: TEMP 99.7
[2022-02-05 16:47] LABS: BASO # 0.1 K/mm3 (0.0-0.2); BASO % 1.4 % (0.0-2.0); EOS # 0.4 K/mm3 (0.0-0.7); GRAN # 4.9 K/mm3 (1.4-6.5); LYMPH # 2.2 K/mm3 (1.2-3.4); LYMPH % 27.3 % (20.0-51.0); MEAN CELL VOLUME 87 fl (80.0-100.0); MEAN CORPUSCULAR HGB CONC 34 g/dl (33.0-37.0); MEAN PLATELET VOLUME 10.2 fl (7.4-10.4); MONO # 0.5 K/mm3 (0.1-0.6); MONO % 5.9 % (1.7-9.3); PLATELET COUNT 321 K/mm3 (130-400); RED BLOOD COUNT 3.22 M/mm3 (4.10-5.30); REDCELL DISTRIBUTION WIDTH-CV 13.7 % (11.5-14.5)
[2022-02-05 16:48] LABS: INR 0.9 (0.8-3.0); PROTHROMBIN TIME 10.4 SECONDS (9.7-12.8)
[2022-02-05 16:51] LABS: PARTIAL THROMBOPLASTIN TIME 28.7 SECONDS (26.0-37.0)
[2022-02-05 16:56] LABS: HEMATOCRIT 28.1 % (37.0-47.0); HEMOGLOBIN 9.5 g/dl (12.5-16.0); MEAN CORPUSCULAR HEMOGLOBIN 30 pg (27-31)
[2022-02-05 16:58] LABS: ALBUMIN 3.9 gm/dL (3.5-5.0); BILIRUBIN,TOTAL 0.3 mg/dL (0.2-1.2); CALCIUM 9.5 mg/dL (8.4-10.2); CREATININE, serum 1.88 mg/dL (0.57-1.11); POTASSIUM 4.3 mmol/L (3.5-4.5); TOTAL PROTEIN 7.2 gm/dL (6.2-8.1)
[2022-02-05 17:18] LABS: TROPONIN-I 0.02 ng/mL (0.00-0.033)
[2022-02-05 19:00] VITALS: BP 99/61; PULSE 75
== END 2022-02-05 19:08 | disposition home or self-care (01) ==
LOC: COL.ER 16:11
PROVIDERS: Emergency Medicine
DX: E86.0 Dehydration (principal); R53.1 Weakness; R79.89 Other specified abnormal findings of blood chemistry; Z20.822 Contact with and (suspected) exposure to COVID-19
CPT/HCPCS: J7040; J7050

== ENCOUNTER → 2022-02-21 | Outpatient (CLI) | payer OTHER ==
[2022-02-21 13:31] LABS: POTASSIUM 4.4 mmol/L (3.5-4.5)
[2022-02-25 14:48] LABS: PROTEIN, TOTAL URINE random 25 mg/dL
[2022-02-25 16:49] LABS: URINE TOTAL VOLUME - 24 HRS 4100 mL/24 hr
[2022-02-25 16:50] LABS: URINE TOTAL VOLUME 4100 mL
== END ==
LOC: COL.LAB 10:15
PROVIDERS: Internal Medicine Interventional Cardiology
DX: I50.22 Chronic systolic (congestive) heart failure (principal); I10 Essential (primary) hypertension; R06.2 Wheezing

== ENCOUNTER 2022-03-11 23:28 | Inpatient (IN) | payer OTHER ==
[~2022-03-11] VITALS: Ht 167.6 cm; Wt 65.7 kg
[2022-03-12] VITALS (859 sets, daily range): BP systolic 76–124; BP diastolic 39–78; PULSE 64–80; TEMP 97.1–97.8; O2SAT 45–100
[2022-03-12 00:03] LABS: BASO # 0.1 K/mm3 (0.0-0.2); BASO % 1.3 % (0.0-2.0); EOS # 0.4 K/mm3 (0.0-0.7); EOS % 4.6 % (0.0-4.0); GRAN % 55.8 % (42.2-75.2); HEMOGLOBIN 12.1 g/dl (12.5-16.0); LYMPH # 2.8 K/mm3 (1.2-3.4); LYMPH % 31.6 % (20.0-51.0); MEAN CELL VOLUME 84 fl (80.0-100.0); MEAN CORPUSCULAR HEMOGLOBIN 29 pg (27-31); MEAN CORPUSCULAR HGB CONC 34 g/dl (33.0-37.0); MEAN PLATELET VOLUME 10.4 fl (7.4-10.4); MONO # 0.5 K/mm3 (0.1-0.6); PLATELET COUNT 362 K/mm3 (130-400); RED BLOOD COUNT 4.25 M/mm3 (4.10-5.30); REDCELL DISTRIBUTION WIDTH-CV 12.4 % (11.5-14.5)
[2022-03-12 00:05] LABS: HEMATOCRIT 35.6 % (37.0-47.0)
[2022-03-12 00:15] LABS: BILIRUBIN,TOTAL 0.3 mg/dL (0.2-1.2); C-REACTIVE PROTEIN 0.83 mg/dL (0.00-0.50); CALCIUM 10.5 mg/dL (8.4-10.2); CREATININE, serum 1.84 mg/dL (0.57-1.11); POTASSIUM 3.6 mmol/L (3.5-4.5)
[2022-03-12 00:22] LABS: TROPONIN-I 0.039 ng/mL (0.00-0.033)
[2022-03-12 00:42] LABS: PROTHROMBIN TIME 11.1 SECONDS (9.7-12.8)
[2022-03-12 00:45] LABS: PARTIAL THROMBOPLASTIN TIME 29.6 SECONDS (26.0-37.0)
[2022-03-12] MEDS ORDERED: LASIX 40MG TABL40 MG PO (01:02)
[2022-03-12] MEDS ORDERED: LOPRESSOR100 MG PO (01:04)
[2022-03-12] MEDS ORDERED: ZOLOFT 100MG100 MG PO (01:05)
[2022-03-12] MEDS ORDERED: PROTONIX 40MG T40 MG PO (01:05)
[2022-03-12] MEDS ORDERED: JARDIANCE10 PO (01:06)
[2022-03-12] MEDS ORDERED: ENTRESTO 24 MG1 EACH PO (01:06)
--- NOTE | 2022-03-12 03:01 | NUR ---
Patient arrived to ICU 8 at 0206. Patient is alert and orientated. Reports 6/10 chest pain. Lalitha CELIS at bedside. All questions answered. Denies needs. Call light in reach.
--- NOTE | 2022-03-12 06:58 | NUR ---
Patient had uneventful night. Off nitro gtt since arrival. Resting in bed asleep. Call light in reach.
--- NOTE | 2022-03-12 07:21 | NUR ---
Report given to [facility] RN. Updated regarding pending hepXA results.
[2022-03-12 07:30] LABS: BASO # 0.1 K/mm3 (0.0-0.2); EOS # 0.2 K/mm3 (0.0-0.7); EOS % 2.9 % (0.0-4.0); GRAN # 4.6 K/mm3 (1.4-6.5); GRAN % 57.8 % (42.2-75.2); LYMPH # 2.5 K/mm3 (1.2-3.4); LYMPH % 31.2 % (20.0-51.0); MEAN CELL VOLUME 85 fl (80.0-100.0); MEAN CORPUSCULAR HEMOGLOBIN 29 pg (27-31); MEAN CORPUSCULAR HGB CONC 33 g/dl (33.0-37.0); MEAN PLATELET VOLUME 10.4 fl (7.4-10.4); MONO # 0.5 K/mm3 (0.1-0.6); MONO % 6.5 % (1.7-9.3); PLATELET COUNT 312 K/mm3 (130-400); RED BLOOD COUNT 3.86 M/mm3 (4.10-5.30); REDCELL DISTRIBUTION WIDTH-CV 12.3 % (11.5-14.5)
[2022-03-12 07:42] LABS: HEMATOCRIT 32.9 % (37.0-47.0)
[2022-03-12 08:19] LABS: CALCIUM 9.5 mg/dL (8.4-10.2); CREATININE, serum 1.41 mg/dL (0.57-1.11); POTASSIUM 3.2 mmol/L (3.5-4.5)
--- NOTE | 2022-03-12 09:30 | NUR ---
The patient is in contact precautions. SW contacted the patient to discuss discharge plan. The patient lives in [place] with her , Harpreet (ph#[phone]). She reports independence with ADLs and has a cane, that she uses every now and then. 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 The patient's primary care provider is Perla Graves APRN at [facility] in [place] and she receives her medications from [facility] and from a mail order from [facility]. She reports no difficulties obtaining her meds. The patient's DPOA-HC is in EMR and it designates her . The patient plans to return home with her upon discharge. No additional needs at this time. *Discharge plan: home with *
--- NOTE | 2022-03-12 15:40 | NUR ---
PT RETURNED FROM [facility]. LT FEMORAL SITE ASSESSED WITH [facility] RN. SITE CLEAN DRY INTACT WITH NO SWELLING OR DISCOLORATION
--- NOTE | 2022-03-12 17:27 | NUR ---
SHIFT REPORT RECEIVED. MORNING ASSESSMENT PREFORMED. PT A&O X4 AND INDEPENDENT. PT WITH DIMINISHED PULSES IN BL UE AND BL LE. PT GIVEN HYGIENE SUPPLIES AND WAS ABLE TO PREFORM HYGIENE AND ORAL CARE INDEPENDENTLY. PT NPO UNTIL HEART CATH PROCEDURE.
--- NOTE | 2022-03-12 20:30 | NUR ---
Assessment complete and charted. Left femoral site CDI, soft. Denies needs at this time. Call light in reach.
[2022-03-13] VITALS (480 sets, daily range): BP systolic 88–108; BP diastolic 42–67; PULSE 72–86; TEMP 97.7–98.1; O2SAT 73–100
--- NOTE | 2022-03-13 03:24 | NUR ---
GIVEN PRN TYLENOL FOR HEADACHE RATING 6/10.
[2022-03-13 09:03] LABS: BASO # 0.1 K/mm3 (0.0-0.2); BASO % 1.8 % (0.0-2.0); EOS # 0.4 K/mm3 (0.0-0.7); EOS % 5.3 % (0.0-4.0); GRAN # 3.4 K/mm3 (1.4-6.5); GRAN % 49.4 % (42.2-75.2); HEMOGLOBIN 10.6 g/dl (12.5-16.0); LYMPH # 2.6 K/mm3 (1.2-3.4); LYMPH % 37.4 % (20.0-51.0); MEAN CELL VOLUME 84 fl (80.0-100.0); MEAN CORPUSCULAR HEMOGLOBIN 29 pg (27-31); MEAN CORPUSCULAR HGB CONC 34 g/dl (33.0-37.0); MEAN PLATELET VOLUME 10.4 fl (7.4-10.4); MONO # 0.4 K/mm3 (0.1-0.6); MONO % 5.7 % (1.7-9.3); PLATELET COUNT 326 K/mm3 (130-400); RED BLOOD COUNT 3.71 M/mm3 (4.10-5.30); REDCELL DISTRIBUTION WIDTH-CV 12.3 % (11.5-14.5)
[2022-03-13 09:09] LABS: HEMATOCRIT 31.3 % (37.0-47.0)
[2022-03-13] MEDS ORDERED: EFFIENT10 MG PO ×3 (10:53→11:00)
[2022-03-13] MEDS ORDERED: RANEXA 500MG T500 MG PO (10:53)
[2022-03-13] MEDS ORDERED: TOPROL XL100 MG PO (10:54)
[2022-03-13] MEDS ORDERED: NITROSTAT0.4 MG/TAB SL (11:01)
[2022-03-13] MEDS ORDERED: LOPRESSOR100 MG PO (11:02)
[2022-03-13 11:15] LABS: CALCIUM 8.8 mg/dL (8.4-10.2); CHOLESTEROL RISK RATIO 8.1; CREATININE, serum 1.48 mg/dL (0.57-1.11)
--- NOTE | 2022-03-13 13:09 | NUR ---
PT DISCHARGED AMBULATORY TO HOME AT 1300. VSS. NO BLEEDING, SWELLING, DRAINAGE NOTED TO L FEMORAL CATH SITE. ALL MEDICATIONS REVIEWED W/ PT. PT GIVEN EDUCATION PRINT OUTS ON CARDIAC CATHETERIZATION, HEART HEALTHY DIET. PT ALSO GIVEN F/U APPT DATE/TIME. PT VERBALIZED UNDERSTANDING OF ALL INSTRUCTION.
--- NOTE | 2022-03-14 08:43 | NUR ---
RE: NSTEMI - REFERRAL WILL BE SENT TO [facility].
== END 2022-03-13 13:00 | disposition home or self-care (01) | DRG 281 ==
LOC: COL.ER 23:28 → ICU 03-12 01:11
PROVIDERS: Internal Medicine; Nurse Practitioner; Student in an Organized Health Care Education/Training Program; ADMIT Family Medicine
PROC: 4A023N7 Measurement of Cardiac Sampling and Pressure, Left Heart, Percutaneous Approach (ICD-10-PCS; principal; 2022-03-12)
PROC: B2111ZZ Fluoroscopy of Multiple Coronary Arteries using Low Osmolar Contrast (ICD-10-PCS; 2022-03-12)
DX: I21.4 Non-ST elevation (NSTEMI) myocardial infarction (principal); I50.22 Chronic systolic (congestive) heart failure; I95.9 Hypotension, unspecified; F32.A Depression, unspecified; I25.10 Atherosclerotic heart disease of native coronary artery without angina pectoris; I11.0 Hypertensive heart disease with heart failure; E11.51 Type 2 diabetes mellitus with diabetic peripheral angiopathy without gangrene; I34.0 Nonrheumatic mitral (valve) insufficiency; E78.5 Hyperlipidemia, unspecified; Z95.0 Presence of cardiac pacemaker; Z90.710 Acquired absence of both cervix and uterus; Z90.89 Acquired absence of other organs; Z87.01 Personal history of pneumonia (recurrent); Z88.6 Allergy status to analgesic agent; Z88.1 Allergy status to other antibiotic agents; Z88.2 Allergy status to sulfonamides; Z95.5 Presence of coronary angioplasty implant and graft; Z72.89 Other problems related to lifestyle; Z79.82 Long term (current) use of aspirin; Z79.4 Long term (current) use of insulin; Z87.891 Personal history of nicotine dependence; Z23 Encounter for immunization
CPT/HCPCS: A9270; C1769; C1887; C1894; J1170; J1644; J1815; J2250; J3010; J3480; J7030

== ENCOUNTER 2022-03-25 18:58 | Inpatient (IN) | payer SELFPAY ==
[~2022-03-25] VITALS: Ht 167.6 cm; Wt 65.9 kg
[~2022-03-25 18:58] MED LIST changes: +EFFIENT10 MG PO; +ENTRESTO 24 MG1 EACH PO; +JARDIANCE10 PO; +LOPRESSOR100 MG PO; +RANEXA 500MG T500 MG PO
[2022-03-25 19:45] LABS: BASO # 0.1 K/mm3 (0.0-0.2); BASO % 1.5 % (0.0-2.0); EOS # 0.2 K/mm3 (0.0-0.7); EOS % 2.6 % (0.0-4.0); GRAN # 5.5 K/mm3 (1.4-6.5); GRAN % 63.9 % (42.2-75.2); HEMOGLOBIN 11.7 g/dl (12.5-16.0); LYMPH # 2.4 K/mm3 (1.2-3.4); LYMPH % 27.2 % (20.0-51.0); MEAN CELL VOLUME 85 fl (80.0-100.0); MEAN CORPUSCULAR HEMOGLOBIN 28 pg (27-31); MEAN CORPUSCULAR HGB CONC 33 g/dl (33.0-37.0); MEAN PLATELET VOLUME 10.7 fl (7.4-10.4); MONO # 0.4 K/mm3 (0.1-0.6); MONO % 4.5 % (1.7-9.3); PLATELET COUNT 358 K/mm3 (130-400); RED BLOOD COUNT 4.19 M/mm3 (4.10-5.30); REDCELL DISTRIBUTION WIDTH-CV 12.1 % (11.5-14.5)
[2022-03-25 19:47] LABS: PROTHROMBIN TIME 11.1 SECONDS (9.7-12.8)
[2022-03-25 19:49] LABS: PARTIAL THROMBOPLASTIN TIME 29.6 SECONDS (26.0-37.0)
[2022-03-25 19:52] LABS: HEMATOCRIT 35.5 % (37.0-47.0)
[2022-03-25 20:03] LABS: ALBUMIN 3.9 gm/dL (3.5-5.0); BILIRUBIN,TOTAL 0.4 mg/dL (0.2-1.2); CALCIUM 9.7 mg/dL (8.4-10.2); CREATININE, serum 2.4 mg/dL (0.57-1.11); POTASSIUM 4.7 mmol/L (3.5-4.5); TOTAL PROTEIN 7.5 gm/dL (6.2-8.1)
[2022-03-25 20:09] LABS: TROPONIN-I 0.025 ng/mL (0.00-0.033)
[2022-03-25 21:00] VITALS: BP 113/59; PULSE 68; TEMP 97.7
[2022-03-25 21:25] LABS: COLLECTION METHOD CLEAN CATCH
[2022-03-25 21:33] LABS: MUCOUS Present (NOT PRESENT); PH 5 (5-8); SQUAMOUS EPITHELIAL 0-2 /hpf (0-10); URINE APPEARANCE Cloudy (CLEAR/HAZY); URINE BACTERIA Rare /hpf (NONE SEEN); URINE BLOOD Negative (NEGATIVE); URINE COLOR Yellow (YELLOW); URINE GLUCOSE 3+ (NEGATIVE); URINE KETONE Negative (NEGATIVE); URINE NITRATE Positive (NEGATIVE); URINE PROTEIN(semi-quant) 1+ (NEGATIVE); URINE UROBILINOGEN Negative (NEGATIVE)
[2022-03-26] VITALS (7 sets, daily range): BP systolic 91–120; BP diastolic 46–66; PULSE 63–87; TEMP 97.7–98.4
[2022-03-26 06:15] LABS: BASO # 0.1 K/mm3 (0.0-0.2); BASO % 1.5 % (0.0-2.0); EOS # 0.3 K/mm3 (0.0-0.7); EOS % 4.2 % (0.0-4.0); GRAN # 3.4 K/mm3 (1.4-6.5); GRAN % 47.6 % (42.2-75.2); HEMOGLOBIN 10.6 g/dl (12.5-16.0); LYMPH % 41.5 % (20.0-51.0); MEAN CELL VOLUME 84 fl (80.0-100.0); MEAN CORPUSCULAR HEMOGLOBIN 28 pg (27-31); MEAN CORPUSCULAR HGB CONC 34 g/dl (33.0-37.0); MEAN PLATELET VOLUME 10.8 fl (7.4-10.4); MONO # 0.4 K/mm3 (0.1-0.6); MONO % 4.9 % (1.7-9.3); PLATELET COUNT 321 K/mm3 (130-400); RED BLOOD COUNT 3.78 M/mm3 (4.10-5.30); REDCELL DISTRIBUTION WIDTH-CV 12.1 % (11.5-14.5)
[2022-03-26 06:25] LABS: HEMATOCRIT 31.6 % (37.0-47.0)
[2022-03-26 06:52] LABS: CALCIUM 8.5 mg/dL (8.4-10.2); CREATININE, serum 1.85 mg/dL (0.57-1.11); POTASSIUM 3.7 mmol/L (3.5-4.5)
--- NOTE | 2022-03-26 14:42 | NUR ---
Supervisor Blood Donor Recruiters met with patient to discuss discharge planning. Patient lives in [place] with her , Harpreet (ph#[phone]) and sees Perla Graves APRN for primary care. Patient is employed at [employer] and is independent with ADLS. Patient does not use any DME. Patient believes she may have completed DPOA-HC designating her , however she was not sure. Patient plans to return home at time of discharge. Discharge Plan: Home
[2022-03-27 03:45] VITALS: BP 94/71; PULSE 72; TEMP 98.3
[2022-03-27 07:00] LABS: BASO # 0.1 K/mm3 (0.0-0.2); BASO % 1.2 % (0.0-2.0); EOS # 0.4 K/mm3 (0.0-0.7); EOS % 5.8 % (0.0-4.0); GRAN # 2.8 K/mm3 (1.4-6.5); GRAN % 43.1 % (42.2-75.2); LYMPH # 2.9 K/mm3 (1.2-3.4); LYMPH % 43.8 % (20.0-51.0); MEAN CELL VOLUME 86 fl (80.0-100.0); MEAN CORPUSCULAR HGB CONC 33 g/dl (33.0-37.0); MEAN PLATELET VOLUME 10.8 fl (7.4-10.4); MONO # 0.4 K/mm3 (0.1-0.6); MONO % 5.8 % (1.7-9.3); PLATELET COUNT 297 K/mm3 (130-400); RED BLOOD COUNT 3.45 M/mm3 (4.10-5.30); REDCELL DISTRIBUTION WIDTH-CV 12.4 % (11.5-14.5)
[2022-03-27 07:02] LABS: HEMATOCRIT 29.8 % (37.0-47.0); HEMOGLOBIN 9.8 g/dl (12.5-16.0); MEAN CORPUSCULAR HEMOGLOBIN 28 pg (27-31)
[2022-03-27 07:13] LABS: CALCIUM 8.6 mg/dL (8.4-10.2); CREATININE, serum 1.62 mg/dL (0.57-1.11); POTASSIUM 4.3 mmol/L (3.5-4.5)
[2022-03-27 07:44] VITALS: BP 131/56; PULSE 71; TEMP 97.9
--- NOTE | 2022-03-27 10:27 | NUR ---
ALERT AND OX4. DENIES SOA, CHEST PAIN OR DIZZY. NO C/O UTI SYMPTOMS. NORCO FOR LEG PAIN. GOOD APPEITITE. POC DISCUSSED. CALL LIGHT WI REACH.
[2022-03-27 11:30] VITALS: BP 104/78; PULSE 72; TEMP 97.4
--- NOTE | 2022-03-27 14:23 | NUR ---
Gin: Spiritism Situation: Art Therapist stopped by room on rounds Background: PT was resting and content Assessment: Pt has no needs right now and appreciated the visit Recommendation: Art Therapist will follow up as needed
[2022-03-27 16:15] VITALS: BP 127/61; PULSE 73; TEMP 98.1
--- NOTE | 2022-03-27 17:19 | NUR ---
HAD A UNEVENTFUL DAY. AMB IN [place]- BS TX PER OCT. PAIN CONTROLLED W WILL. NEEDS MET.
[2022-03-27 19:49] VITALS: BP 131/75; PULSE 79; TEMP 98
[2022-03-27 23:52] VITALS: BP 144/85; PULSE 72; TEMP 98.1
[2022-03-28 03:45] VITALS: BP 121/53; PULSE 75; TEMP 98.1
[2022-03-28 06:39] LABS: CREATININE, serum 1.44 mg/dL (0.57-1.11); POTASSIUM 4.5 mmol/L (3.5-4.5)
[2022-03-28 06:57] LABS: HEMOGLOBIN 10.8 g/dl (12.5-16.0); MEAN CELL VOLUME 85 fl (80.0-100.0); MEAN CORPUSCULAR HEMOGLOBIN 28 pg (27-31); MEAN CORPUSCULAR HGB CONC 33 g/dl (33.0-37.0); MEAN PLATELET VOLUME 10.8 fl (7.4-10.4); PLATELET COUNT 301 K/mm3 (130-400); RED BLOOD COUNT 3.86 M/mm3 (4.10-5.30); REDCELL DISTRIBUTION WIDTH-CV 12.6 % (11.5-14.5)
[2022-03-28 07:00] LABS: HEMATOCRIT 32.6 % (37.0-47.0)
[2022-03-28 07:15] VITALS: BP 127/57; PULSE 74; TEMP 98
[2022-03-28 08:09] LABS: BAND 2 % (0-10); BASOPHIL 1 % (0-2); EOSINOPHIL 5 % (0-4); LYMPHOCYTE 35 % (20.0-51.0); NEUTROPHILS 54 % (42.0-75.2); PLATELET ESTIMATE NORMAL (NORMAL)
[2022-03-28] MEDS ORDERED: MONUROL 3 GM3 G/PKT PO (08:57)
[2022-03-28] MEDS ORDERED: TOPROL XL 50MG50 MG PO (08:59)
--- NOTE | 2022-03-28 10:00 | NUR ---
Missionary Coordinator collaborated with Hospitalist who advised patient will not require IV antibiotics and will discharge home today.
--- NOTE | 2022-03-28 11:04 | NUR ---
DC TO HOME - W/C TO FRONT LOBBY W ALL BELONGINGS. NEEDS MET.
== END 2022-03-28 10:40 | disposition home or self-care (01) | DRG 312 ==
LOC: COL.ER 18:58 → MEDICAL 21:02
PROVIDERS: Emergency Medicine; Physician Assistant; Student in an Organized Health Care Education/Training Program; ADMIT Internal Medicine
DX: I95.2 Hypotension due to drugs (principal); N39.0 Urinary tract infection, site not specified; I50.22 Chronic systolic (congestive) heart failure; N17.9 Acute kidney failure, unspecified; Z16.12 Extended spectrum beta lactamase (ESBL) resistance; M54.50 Low back pain, unspecified; I25.10 Atherosclerotic heart disease of native coronary artery without angina pectoris; I11.0 Hypertensive heart disease with heart failure; Z20.822 Contact with and (suspected) exposure to COVID-19; E11.65 Type 2 diabetes mellitus with hyperglycemia; E78.5 Hyperlipidemia, unspecified; D64.9 Anemia, unspecified; F32.A Depression, unspecified; E86.1 Hypovolemia; E86.0 Dehydration; G44.209 Tension-type headache, unspecified, not intractable; T50.995A Adverse effect of other drugs, medicaments and biological substances, initial encounter; K21.9 Gastro-esophageal reflux disease without esophagitis; Z95.0 Presence of cardiac pacemaker; Z90.710 Acquired absence of both cervix and uterus; Z90.89 Acquired absence of other organs; Z79.4 Long term (current) use of insulin; Z79.82 Long term (current) use of aspirin; I25.2 Old myocardial infarction; Z88.6 Allergy status to analgesic agent; Z95.5 Presence of coronary angioplasty implant and graft; Z88.2 Allergy status to sulfonamides; Z88.8 Allergy status to other drugs, medicaments and biological substances; Z87.891 Personal history of nicotine dependence; Y92.89 Other specified places as the place of occurrence of the external cause; Z23 Encounter for immunization
CPT/HCPCS: OP; A9270; G0378; J0696; J1644; J1815; J2185; J3010; J7030

== ENCOUNTER 2022-05-04 11:49 | Emergency (ER) | payer SELFPAY ==
[~2022-05-04] VITALS: Ht 167.6 cm; Wt 67.3 kg
[~2022-05-04 11:49] MED LIST changes: +MONUROL 3 GM3 G/PKT PO
[2022-05-04 11:53] VITALS: TEMP 97
[2022-05-04 12:43] LABS: BASO # 0.1 K/mm3 (0.0-0.2); EOS # 0.2 K/mm3 (0.0-0.7); GRAN # 5.5 K/mm3 (1.4-6.5); GRAN % 68.4 % (42.2-75.2); HEMOGLOBIN 10.3 g/dl (12.5-16.0); LYMPH # 1.8 K/mm3 (1.2-3.4); LYMPH % 22.4 % (20.0-51.0); MEAN CELL VOLUME 85 fl (80.0-100.0); MEAN CORPUSCULAR HEMOGLOBIN 27 pg (27-31); MEAN CORPUSCULAR HGB CONC 32 g/dl (33.0-37.0); MEAN PLATELET VOLUME 10.5 fl (7.4-10.4); MONO # 0.4 K/mm3 (0.1-0.6); MONO % 4.8 % (1.7-9.3); PLATELET COUNT 214 K/mm3 (130-400); RED BLOOD COUNT 3.79 M/mm3 (4.10-5.30); REDCELL DISTRIBUTION WIDTH-CV 13.3 % (11.5-14.5)
[2022-05-04 12:45] LABS: HEMATOCRIT 32.1 % (37.0-47.0)
[2022-05-04 12:58] LABS: ALBUMIN 3.3 gm/dL (3.5-5.0); BILIRUBIN,TOTAL 0.2 mg/dL (0.2-1.2); CREATININE, serum 1.49 mg/dL (0.57-1.11); POTASSIUM 3.7 mmol/L (3.5-4.5); TOTAL PROTEIN 6.3 gm/dL (6.2-8.1)
[2022-05-04 13:07] LABS: TROPONIN-I 0.015 ng/mL (0.00-0.033)
[2022-05-04 15:02] LABS: COLLECTION METHOD CLEAN CATCH
[2022-05-04 15:09] LABS: PH 5.5 (5.0-8.5); URINE APPEARANCE Clear (CLEAR/HAZY); URINE COLOR Yellow (YELLOW); URINE GLUCOSE 3+ (NEGATIVE); URINE KETONE Negative (NEGATIVE); URINE PROTEIN(semi-quant) 1+ (NEGATIVE); URINE UROBILINOGEN 0.2 E.U/dL (0.2-1.0)
[2022-05-04 15:10] LABS: URINE BLOOD Negative (NEGATIVE); URINE NITRATE Negative (NEGATIVE)
[2022-05-04 15:12] LABS: MUCOUS Present (NOT PRESENT); URINE BACTERIA Rare /hpf (NONE SEEN)
[2022-05-04 15:18] VITALS: BP 120/63; PULSE 64
[2022-05-04] MEDS ORDERED: CEPHALEXIN500 M1 PO (15:18)
== END 2022-05-04 15:30 | disposition home or self-care (01) ==
LOC: COL.ER 11:49
PROVIDERS: Emergency Medicine
DX: M54.2 Cervicalgia (principal); I95.9 Hypotension, unspecified; Z95.5 Presence of coronary angioplasty implant and graft; Z95.0 Presence of cardiac pacemaker
CPT/HCPCS: J7120

== ENCOUNTER → 2023-09-04 | Outpatient (CLI) | payer OTHER ==
[~2023-09-04] MED LIST changes: +ALDACTONE 25MG25 M1 PO; +AMOXICILLIN 8751 TAB PO; +APRESOLINE 25MG25 MG PO; +CEPHALEXIN500 M1 PO; +DESYREL 50MG50 MG PO; +HUMALOG100 U/ML SQ; -JARDIANCE10 PO; +JARDIANCE25 PO; +NICODERM C14 MG/PATC TD; +ROBAXIN 50500 MG/TAB PO; +XARELTO2.5 MG PO; +ZETIA 10MG TAB10 MG PO
== END ==
LOC: MHCPAIN 13:19
DX: M47.817 Spondylosis without myelopathy or radiculopathy, lumbosacral region (principal)
CPT/HCPCS: J0665

== ENCOUNTER → 2023-09-10 | Outpatient (CLI) | payer OTHER | LOC: MHCPAIN 09:04 | DX: M47.817 Spondylosis without myelopathy or radiculopathy, lumbosacral region (principal); M54.50 Low back pain, unspecified; M54.2 Cervicalgia; M79.2 Neuralgia and neuritis, unspecified | CPT/HCPCS: G0463 ==

== ENCOUNTER → 2023-11-25 | Outpatient (CLI) | payer OTHER | LOC: MHCPAIN 10:48 | DX: M47.896 Other spondylosis, lumbar region (principal); M79.2 Neuralgia and neuritis, unspecified; G89.29 Other chronic pain | CPT/HCPCS: G0463 ==

== ENCOUNTER → 2024-02-25 | Outpatient (CLI) | payer OTHER | LOC: MHCPAIN 10:47 | DX: M54.50 Low back pain, unspecified (principal); M54.2 Cervicalgia; M79.2 Neuralgia and neuritis, unspecified | CPT/HCPCS: G0463 ==

== ENCOUNTER → 2024-04-19 | Outpatient (CLI) | payer OTHER | LOC: MHCPAIN 10:39 | DX: M51.26 Other intervertebral disc displacement, lumbar region (principal); M51.27 Other intervertebral disc displacement, lumbosacral region; M79.2 Neuralgia and neuritis, unspecified; N18.9 Chronic kidney disease, unspecified; I50.9 Heart failure, unspecified; I25.10 Atherosclerotic heart disease of native coronary artery without angina pectoris; E11.9 Type 2 diabetes mellitus without complications; Z79.4 Long term (current) use of insulin; Z79.84 Long term (current) use of oral hypoglycemic drugs | CPT/HCPCS: G0463 ==